=== PATIENT | female | born 1930 | race Caucasian/White ===

== ENCOUNTER 2018-09-09 15:56 | Emergency (ER) | payer BC ==
--- NOTE | 2018-09-09 16:03 | PDOC ---
Rapid Medical Evaluation Time Seen by Provider: 09/09/18 16:01 Medical Evaluation: 09/09/18 16:02 I have performed a brief in-person evaluation of this patient. The patient presents with a chief complaint of: sent by PMD for admission. Pertinent physical exam findings: BLE edema present I have ordered the following: labs, urine, EKG, CXR The patient will proceed to the ED for further evaluation. Discharge Disposition - Diagnosis Edema - Referrals - Patient Instructions - Post Discharge Activity
[2018-09-09 16:05] VITALS: BP 216/87; PULSE 75; TEMP 98.2; BMI 19.5
[2018-09-09 17:14] LABS: BASO % 0.7 % (0-2.0); HEMATOCRIT 29.7 % (32.4-45.2); HEMOGLOBIN 10.4 GM/dL (10.7-15.3); LYMPH % 25.9 % (8-40); MCH 30.1 pg (25.7-33.7); MCHC 34.9 g/dl (32.0-36.0); MEAN CELL VOLUME 86.2 fl (80-96); MEAN PLT VOLUME 9.2 fl (7.5-11.1); MONO % 6.1 % (3.8-10.2); NEUT % 66.3 % (42.8-82.8); PLATELET COUNT 302 K/MM3 (134-434); RBC 3.45 M/mm3 (3.60-5.2); RDW 14.2 % (11.6-15.6); WHITE BLOOD COUNT 7.1 K/mm3 (4.0-10.0)
[2018-09-09 17:39] LABS: ALBUMIN 2.8 g/dl (3.4-5.0); ALK PHOS 152 U/L (45-117); ANION GAP 10 MMOL/L (8-16); BILIRUBIN,TOTAL 0.2 mg/dL (0.2-1); BLOOD UREA NITROGEN 39 mg/dL (7-18); CALCIUM 7.9 mg/dL (8.5-10.1); CHLORIDE 112 mmol/L (98-107); CO2 19 mmol/L (21-32); CREATININE 2.2 mg/dL (0.55-1.3); GLUCOSE,RANDOM 104 mg/dL (74-106); N-TERMINAL BNP 8111.3 pg/ml (5-450); POTASSIUM 4.2 mmol/L (3.5-5.1); SGOT/AST 16 U/L (15-37); SGPT/ALT 19 U/L (13-61); SODIUM 142 mmol/L (136-145); TOT PROT 6.2 g/dl (6.4-8.2)
--- NOTE | 2018-09-10 15:27 | EKG ---
Test Reason : Blood Pressure : / mmHG Vent. Rate : 073 BPM Atrial Rate : 073 BPM P-R Int : 130 ms QRS Dur : 112 ms QT Int : 410 ms P-R-T Axes : 076 037 044 degrees QTc Int : 451 ms NORMAL SINUS RHYTHM WITH SINUS ARRHYTHMIA INCOMPLETE RIGHT BUNDLE BRANCH BLOCK ABNORMAL ECG WHEN COMPARED WITH ECG OF 27-JUL-2009 12:58, INCOMPLETE RIGHT BUNDLE BRANCH BLOCK IS NOW PRESENT Confirmed by RADHA GALEANO, WEST ([id number]) on 09/10/2018 3:27:08 PM Referred By: Confirmed By:WEST GARCIA MD
== END 2018-09-09 20:33 | disposition home or self-care (01) ==
LOC: JER 15:56
DX: M79.89 Other specified soft tissue disorders (principal)
CPT/HCPCS: 36415; 71046-TC-FY; 80053; 82550; 82553; 83880; 84484; 85025; 93005; 93010; 99282-25

== ENCOUNTER 2018-09-09 20:44 | Observation (INO) | payer BC ==
--- NOTE | 2018-09-09 20:48 | PDOC ---
History of Present Illness - General History Source: Patient, Family Exam Limitations: No Limitations - History of Present Illness Initial Comments: 09/09/18 21:03 A portion of this note was documented by scribe services under my direction. I have reviewed the details of the note, within reason, and agree with the documentation with the following case summary and management plan written by me. Patient treated in the ED. Nursing notes are reviewed and incorporated into the medical decision-making. Vital signs reviewed. Assessment and plan: This is an 88-year-old female brought in by her granddaughter for evaluation and admission. Patient's granddaughter said they were over at [facility] patient waited 4 hours and had not seen a doctor yet so she brought her over here. However patient had a rapid medical evaluation and labs EKG and chest x-ray were ordered and completed prior to patient leaving [facility]. Significant values in patient's workup showed a BNP of 8118. Renal insufficiency with a BUN of 39 and a creatinine of 2.2 Patient's CBC was normal with a normal white count and differential Patient did have a measurable troponin of 0.2 Patient was noted to also have elevated blood pressure of systolic blood pressure 203 Patient will be admitted to a telemetry bed under the hospitalist service <Cheyanne Michel I - Last Filed: 09/09/18 21:07> - General History Source: Patient, Family Exam Limitations: No Limitations - History of Present Illness Initial Comments: The patient is an 88 year old female, with a significant PMH of hypertension, renal insufficiency, CHF, who presents to the emergency department sent by Dr. Mace for admission for abnormal lab values in the office. The patient presents with her family who states the patient had labs and a chest X Ray performed at [facility], however, after not being seen for many hours decided to come to [place] ED. The patient reports some mild discomfort to her lower extremities secondary to swelling. She denies any other complaints. The patient denies chest pain, shortness of breath, headache and dizziness. Denies fever, chills, nausea, vomit, diarrhea and constipation. Denies dysuria, frequency, urgency and hematuria. PAST MEDICAL HISTORY: As per HPI PAST SURGICAL HISTORY: no significant history FAMILY HISTORY: no pertinent history SOCIAL HISTORY: Pt lives with family and is employed. MEDICATIONS: reviewed ALLERGIES: As per nursing notes ROS General: No fevers or chills, no weakness, no weight loss HEENT: No change in vision. No sore throat,. No ear pain CardioVascular: No chest pain or shortness of breath Respiratory:No cough, or wheezing. Gastrointestinal: no nausea, vomiting, diarrhea or constipation, No rectal bleeding Genitourinary: No dysuria, hematuria, or frequency Musculoskeletal: +Bilateral LE discomfort and swelling. Neurologic: No headache, vertigo, dizziness or loss of consciousness Psychiatric: nor depression Skin: No rashes or easy bruising Endocrine: no increased thirst or abnormal weight change Allergic: no skin or latex allergy All other systems reviewed and normal Exam: General: Well-nourished well-developed individual, no acute distress HEENT: Throat: Normal, tonsils normal, no erythema or exudate Neck: Supple, no meningeal signs, no lymphadenopathy Eyes::Pupils equal reactive and round, extraocular motion intact Chest: Nontender to palpation Cardiac: +2/6 holosystolic murmur. S1-S2 normal, regular rate and rhythm, no rubs or gallops Respiratory: +Crackles to bilateral bases about ? way up. Abdomen: Soft, nondistended, normal bowel sounds, nontender to palpation diffusely Extremities: +2+ pitting edema to approx. mid calf. Warm, dry, no cyanosis, clubbing, or edema Skin: No rashes Neuro: Alert and oriented x3, nonfocal exam, grossly intact, normal gait Psych: Normal mood and affect 09/09/18 22:12 <Yelena Melendez - Last Filed: 09/09/18 22:12> - General Chief Complaint: Blood Pressure Problem Stated Complaint: HTN Time Seen by Provider: 09/09/18 20:48 Past History - Past Medical History COPD: No HTN: Yes - Suicide/Smoking/Psychosocial Hx Smoking History: Never smoked <Cheyanne Michel I - Last Filed: 09/09/18 21:07> <Yelena Melendez - Last Filed: 09/09/18 22:12> - Past Medical History Allergies/Adverse Reactions: Allergies Allergy/AdvReac Type Severity Reaction Status Date / Time No Known Allergies Allergy Verified 09/09/18 16:04 Home Medications: Ambulatory Orders Atorvastatin Ca [Lipitor] 10 mg PO HS 09/09/18 Hydralazine HCl 25 mg PO BID 09/09/18 Metoprolol Tartrate 50 mg PO BID 09/09/18 *Physical Exam - Vital Signs Last Vital Signs Temp Pulse Resp BP Pulse Ox 98.2 F 77 20 189/83 H 97 09/09/18 20:45 09/09/18 21:07 09/09/18 21:07 09/09/18 21:34 09/09/18 21:07 <Yelena Melendez - Last Filed: 09/09/18 22:12> Moderate Sedation - Procedure Monitoring Vital Signs: Procedure Monitoring Vital Signs Temperature 98.2 F 09/09/18 20:45 Pulse Rate 77 09/09/18 21:07 Respiratory Rate 20 09/09/18 21:07 Blood Pressure 189/83 H 09/09/18 21:34 O2 Sat by Pulse Oximetry (%) 97 09/09/18 21:07 <Yelena Melendez - Last Filed: 09/09/18 22:12> *DC/Admit/Observation/Transfer - Discharge Dispostion Decision to Admit order: Yes <Cheyanne Michel I - Last Filed: 09/09/18 21:07> - Attestations Scribe Attestion: 09/09/18 22:12 Documentation prepared by NADEEM Murphy, acting as medical accounting clerk for Cheyanne Michel MD. <Yelena Melendez - Last Filed: 09/09/18 22:12> Diagnosis at time of Disposition: CHF (congestive heart failure) Qualifiers: Heart failure type: unspecified Heart failure chronicity: acute on chronic Qualified Code(s): I50.9 - Heart failure, unspecified
[2018-09-09] MEDS ORDERED: METOPROLOL TARTRATE 50 MG TABLET (FP) PO SCH (22:15)
--- NOTE | 2018-09-09 22:17 | HP ---
CHIEF COMPLAINT: Increased BP, leg swelling and fatigue PCP: Dr. Byrnes HISTORY OF PRESENT ILLNESS: 88 year old female with a PMH of HTN, HLD, CKD, and dementia presented to the ED today at the request of her PCP with elevated BP and increased leg swelling at her appointment today. She was seen at the [facility] tract, but had to wait approximately 4 hours so the family left and brought her to [place]. Grand daughters and [id number] present to provide history. Family reports patient has has had intermittently increased leg swelling over the past several months. They also notice patient has become increasingly fatigued with exertion. They reports she has lost approximately 15 lbs over the past several months due to decreased appetite. Her blood pressure medication has been adjusted in the past several months by her PCP as her BP has been running high. 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 She was diagnosed by a neurologist in February with Alzheimer's disease. She was started on Aricept for 2 weeks, but it had to be discontinued because of nausea vomiting. Patient denies fevers, chills, headache , syncope, seizures, SOB, chest pain, abdominal pain. Upon admission to the ED, BP was 216/87. Labs notable for BNP of 8111.3, troponin #1 WNL, EKG with ST elevations in II, AVL, T-wave in V1, V2, V3, CXR showed b/l pleural effusions with bibasilar atelectasis. Recent Travel: No PAST MEDICAL HISTORY: Alzheimer's dementia HTN HLD CKD PAST SURGICAL HISTORY: Kidney stones Partial thyroidectomy Social History: Born in [facility], , lives at home with her grandson and his . Smoking: Never Alcohol: No Drugs: No Family History: Cancer: 2 sisters young, unsure of what kind of cancer, son - lung cancer , daughter: stomach cancer Allergies No Known Allergies Allergy (Verified 09/09/18 16:04) HOME MEDICATIONS: Home Medications Medication Instructions Recorded Atorvastatin Ca [Lipitor] 10 mg PO HS 09/09/18 Hydralazine HCl 25 mg PO BID 09/09/18 Metoprolol Tartrate 50 mg PO BID 09/09/18 REVIEW OF SYSTEMS CONSTITUTIONAL: (+) loss of appetite, weight change about 15 lbs over the past few months Absent: fever, chills, diaphoresis, generalized weakness, malaise, HEENT: Absent: rhinorrhea, nasal congestion, throat pain, throat swelling, difficulty swallowing, mouth swelling, ear pain, eye pain, visual changes CARDIOVASCULAR: (+) peripheral edema Absent: chest pain, syncope, palpitations, irregular heart rate, lightheadedness RESPIRATORY: (+) dyspnea with exertion Absent: cough, shortness of breath, orthopnea, wheezing, stridor, hemoptysis GASTROINTESTINAL: Absent: abdominal pain, abdominal distension, nausea, vomiting, diarrhea, constipation, melena, hematochezia GENITOURINARY: Absent: dysuria, frequency, urgency, hesitancy, hematuria, flank pain, genital pain MUSCULOSKELETAL: Absent: myalgia, arthralgia, joint swelling, back pain, neck pain SKIN: Absent: rash, itching, pallor HEMATOLOGIC/IMMUNOLOGIC: Absent: easy bleeding, easy bruising, lymphadenopathy, frequent infections ENDOCRINE: Absent: unexplained weight gain, unexplained weight loss, heat intolerance, cold intolerance NEUROLOGIC: Absent: headache, focal weakness or paresthesias, dizziness, unsteady gait, seizure, mental status changes, bladder or bowel incontinence PSYCHIATRIC: Absent: anxiety, depression, suicidal or homicidal ideation, hallucinations. PHYSICAL EXAMINATION Vital Signs - 24 hr 09/09/18 09/09/18 09/09/18 20:45 21:07 21:34 Temperature 98.2 F Pulse Rate [ 77 Left] Respiratory 20 20 Rate Blood Pressure 203/87 H Blood Pressure 206/74 H 189/83 H [Right Arm] O2 Sat by Pulse 97 97 Oximetry (%) GENERAL: Elderly, lying down, awake, pleasant, alert and oriented to person and place, in no acute distress. HEAD: Normal with no signs of trauma. EYES: Pupils equal, round and reactive to light, extraocular movements intact, sclera anicteric, conjunctiva clear. No lid lag. EARS, NOSE, THROAT: Nares patent, oropharynx clear without exudates. Moist mucous membranes. NECK: Normal range of motion, supple without lymphadenopathy, JVD, or masses. LUNGS: Breath sounds equal, clear to auscultation bilaterally. No wheezes, and no crackles. No accessory muscle use. HEART: Regular rate and rhythm, normal S1 and S2 without murmur, rub or gallop. ABDOMEN: Soft, nontender, not distended, normoactive bowel sounds, no guarding, no rebound, no masses. No hepatomegaly or splenomegaly. MUSCULOSKELETAL: Normal range of motion at all joints. No bony deformities or tenderness. No CVA tenderness. UPPER EXTREMITIES: 4/5 rapid transit operator strength b/l, 2+ pulses, warm, well-perfused. No cyanosis. No clubbing. No peripheral edema. LOWER EXTREMITIES: 5/5 leg strength, hyperpigmentation, with flakey pink skin and +2 pitting edema to BLE, no calf tenderness NEUROLOGICAL: No facial droop, normal speech. Normal gait. PSYCHIATRIC: Cooperative. Good eye contact. Appropriate mood and affect. SKIN: Warm, dry, normal turgor, no rashes or lesions noted, normal capillary refill. EKG EKG with ST elevations in II, AVL, T-wave in V1, V2, V3 compared to prior study in 07/27/09, though study was of poor quality. ASSESSMENT/PLAN: 88 year old female with a PMH of HTN, HLD, CKD, and dementia presented to the ED today at the request of her PCP with elevated BP (216/87) and increased leg swelling. She was found to have a BNP of 8111.3, CXR with b/l pleural effusions. She was admitted for further cardiac work up. Elevated BNP/lower leg edema - BNP 8111.3 - Trop #1 0.02, trop #2 pending - Abnormal EKG - Elevate legs - Continuous cardiac monitoring - Echocardiogram ordered - Cardiology consult ordered HTN - Improving - Continue home medications: - Hydralazine 25 mg BID - Metoprolol 50 BID - Cardiology consult ordered HLD - Continue Lipitor 10 mg QHS CKD Stage IV - BUN/Cr: 39/2.2 (baseline) - Renal dosing for medications - Renal diet FEN - PO intake adequate - Replete as needed - Sodium restricted/Renal diet Prophylaxis - DVT: Heparin SQ DISP: Patient requires further cardiac work up. Visit type - Emergency Visit Emergency Visit: Yes ED Registration Date: 09/09/18 Care time: The patient presented to the Emergency Department on the above date and was hospitalized for further evaluation of their emergent condition. - New Patient This patient is new to me today: Yes Date on this admission: 09/10/18 - Critical Care Critical Care patient: No
[2018-09-09] MEDS: hydrALAZINE HCL 25 MG TABLET (FP) PO SCH (23:30)
[2018-09-10 00:03] VITALS: BMI 21.5
[2018-09-10 08:33] LABS: HEMATOCRIT 28.2 % (32.4-45.2); HEMOGLOBIN 9.2 GM/dl (10.7-15.3); MCH 28.6 pg (25.7-33.7); MCHC 32.7 g/dl (32.0-36.0); MEAN CELL VOLUME 87.6 fl (80-96); MEAN PLT VOLUME 9.3 fl (7.5-11.1); PLATELET COUNT 273 K/MM3 (134-434); RBC 3.22 M/mm3 (3.60-5.2); RDW 13.3 % (11.6-15.6); WHITE BLOOD COUNT 6.4 K/mm3 (4.0-10.8)
--- NOTE | 2018-09-10 08:37 | CON.CARD ---
Consult Consult Specialty:: Cardiology Referred by:: Hospitalist Medicine Reason for Consultation:: Newly diagnosed CHF, hypertensive urgency - History of Present Illness Chief Complaint: Dyspnea, LE edema History of Present Illness: 88 year old female with a PMH of HTN, HLD, CKD, and dementia of Alzheimer's type presented to the ED with elevated BP, progressive exertional fatigue and increased leg swelling. e. She was started on Aricept for 2 weeks, but it had to be discontinued because of nausea vomiting. Patient denies fevers, chills, headache, near or syncope, seizures, SOB, chest pain, abdominal pain, palpitations. Upon admission to the ED, BP was 216/87. Labs notable for BNP of 8111.3, troponin #1 WNL, ECG not available for review CXR showed b/l pleural effusions with bibasilar atelectasis. - History Source History Provided By: Medical Record Limitations to Obtaining History: Clinical Condition - Alcohol/Substance Use Hx Alcohol Use: No - Smoking History Smoking history: Never smoked Have you smoked in the past 12 months: No Home Medications - Allergies Allergies/Adverse Reactions: Allergies Allergy/AdvReac Type Severity Reaction Status Date / Time No Known Allergies Allergy Verified 09/09/18 16:04 - Home Medications Home Medications: Ambulatory Orders Atorvastatin Ca [Lipitor] 10 mg PO HS 09/09/18 Hydralazine HCl 25 mg PO BID 09/09/18 Metoprolol Tartrate 50 mg PO BID 09/09/18 Review of Systems - Review of Systems Constitutional: reports: Loss of Appetite, Weakness Cardiovascular: reports: Edema Vital Signs: Vital Signs Temperature 98.9 F 09/10/18 06:00 Pulse Rate 69 09/10/18 06:00 Respiratory Rate 18 09/10/18 06:00 Blood Pressure 149/53 L 09/10/18 06:00 O2 Sat by Pulse Oximetry (%) 94 L 09/10/18 06:00 Constitutional: Yes: No Distress, Calm Neck: Yes: Supple Respiratory: Yes: Regular, Diminished Gastrointestinal: Yes: Normal Bowel Sounds, Soft Cardiovascular: Yes: Regular Rate and Rhythm JVD: No Carotid Bruit: No Heart Sounds: Yes: S1, S2 Murmur: Yes: Systolic Murmur, Grade 1 Edema: Yes Edema: LLE: 1+, RLE: 1+ - Other Data Labs, Other Data: Troponin, BNP 09/09/18 09/09/18 23:30 23:30 Troponin I Cancelled 0.03 Troponin, BNP 09/09/18 09/09/18 23:30 23:30 Troponin I Cancelled 0.03 Not available for review Imaging - Results Chest X-ray: Report Reviewed (Bilateral effusions) Problem List - Problems (1) Hypertensive urgency Code(s): I16.0 - HYPERTENSIVE URGENCY (2) Hyperlipidemia Code(s): E78.5 - HYPERLIPIDEMIA, UNSPECIFIED Qualifiers: Hyperlipidemia type: pure hypercholesterolemia Qualified Code(s): E78.00 - Pure hypercholesterolemia, unspecified; E78.0 - Pure hypercholesterolemia (3) Dementia Code(s): F03.90 - UNSPECIFIED DEMENTIA WITHOUT BEHAVIORAL DISTURBANCE Qualifiers: Dementia type: Alzheimer's disease (4) Chronic kidney disease Code(s): N18.9 - CHRONIC KIDNEY DISEASE, UNSPECIFIED Qualifiers: Chronic kidney disease stage: stage 3 (moderate) Qualified Code(s): N18.3 - Chronic kidney disease, stage 3 (moderate) (5) CHF (congestive heart failure) Code(s): I50.9 - HEART FAILURE, UNSPECIFIED Qualifiers: Heart failure type: diastolic Heart failure chronicity: acute on chronic Qualified Code(s): I50.33 - Acute on chronic diastolic (congestive) heart failure Assessment/Plan 1. Acute on chronic diastolic heart failure 2. Hypertensive cardiomyopathy with urgency 3. Hyperlipidemia 4. CKD 5. Dementia of Alzheimer's Type 6. Anemia P:1. IV diuresis with monitor diuretic response, renal fxn and electrolytes, replete Mg 2. Change Lopressor to carvedilol 6.25 bid with uptitration as tolerated, continue Lipitor 10 qhs, ASA 81 qd 3. Start CHRIS-I/ARB once renal fxn stabilizes, continue hydralazine 25 bid for now 4. F/u echocardiogram results, obtain ECG for review 5. Thank you for consultative opportunity
[2018-09-10 08:43] LABS: ANION GAP 9 MMOL/L (8-16); BLOOD UREA NITROGEN 36 mg/dl (7-18); CALCIUM 7.9 mg/dl (8.4-10.2); CHLORIDE 112 mmol/L (98-107); CO2 18 mmol/L (22-28); GLUCOSE,RANDOM 103 mg/dl (74-106); MAGNESIUM 1.6 mg/dL (1.8-2.4); POTASSIUM 4.5 mmol/L (3.5-5.1); SODIUM 139 mmol/L (136-145)
[2018-09-10] MEDS ORDERED: FUROSEMIDE 40 MG/4 ML INJECTABLE VIAL IVPUSH SCH (09:00)
[2018-09-10] MEDS ORDERED: MAGNESIUM SULF 50% (8.12 MEQ/2 ML-1 GM VIAL) IVPB ONE (09:04)
[2018-09-10] MEDS ORDERED: MAGNESIUM OXIDE 400 MG TABLET (FP) PO ONE (09:15)
[2018-09-10] MEDS: CARVEDILOL 6.25 MG TABLET (FP) PO SCH ×2 (10:03→21:51)
[2018-09-10] MEDS: hydrALAZINE HCL 25 MG TABLET (FP) PO SCH ×2 (10:03→21:51)
[2018-09-10] MEDS: ASPIRIN 81 MG CHEWABLE TABLETS PO SCH (10:03)
[2018-09-10] MEDS: HEPARIN NA (PORCINE) 5,000 UNITS/ML 1ML VIAL SQ SCH ×2 (10:03→21:51)
--- NOTE | 2018-09-10 11:12 | PN ---
Physical Exam: SUBJECTIVE: Patient seen and examined on morning rounds. No complaints. OBJECTIVE: Vital Signs Period Temp Pulse Resp BP Sys/Ya Pulse Ox Last 24 Hr 98.2 F-98.9 F 67-77 17-20 134-206/50-87 93-97 GENERAL: The patient is awake, alert, oriented x 2. HEAD: Normal with no signs of trauma. EYES: PERRL, extraocular movements intact, sclera anicteric, conjunctiva clear. No ptosis. ENT: Ears normal, nares patent, oropharynx clear without exudates, moist mucous membranes. NECK: Trachea midline, full range of motion, supple. LUNGS: Scattered rales. No tachypnea or accessory muscle use. HEART: Regular rate and rhythm, S1, S2 without murmur, rub or gallop. ABDOMEN: Soft, nontender, nondistended, normoactive bowel sounds, no guarding, no rebound, no hepatosplenomegaly, no masses. EXTREMITIES: 2+ pulses, warm, well-perfused, 2+ pitting LE edema and chronic venous stasis changes with cobblestoning. No erythema or drainage. NEUROLOGICAL: Cranial nerves II through XII grossly intact. Normal speech, gait not observed. PSYCH: Normal mood, normal affect. SKIN: Warm, dry, normal turgor, no rashes or lesions noted Laboratory Results - last 24 hr 09/09/18 09/09/18 09/10/18 23:30 23:30 08:17 WBC 6.4 RBC 3.22 L Hgb 9.2 L Hct 28.2 L MCV 87.6 MCH 28.6 MCHC 32.7 RDW 13.3 Plt Count 273 MPV 9.3 Sodium Potassium Chloride Carbon Dioxide Anion Gap BUN Creatinine Creat Clearance w eGFR Random Glucose Calcium Magnesium Troponin I Cancelled 0.03 09/10/18 08:17 WBC RBC Hgb Hct MCV MCH MCHC RDW Plt Count MPV Sodium 139 Potassium 4.5 Chloride 112 H Carbon Dioxide 18 L Anion Gap 9 BUN 36 H Creatinine 2.0 H Creat Clearance w eGFR 23.57 Random Glucose 103 Calcium 7.9 L Magnesium 1.6 L Troponin I Active Medications Generic Name Dose Route Start Last Admin Trade Name Freq PRN Reason Stop Dose Admin Aspirin 81 mg 09/10/18 10:00 09/10/18 10:03 Asa - PO 81 mg DAILY PENELOPE Administration Atorvastatin Calcium 10 mg 09/10/18 22:00 Lipitor - PO HS PENELOPE Carvedilol 6.25 mg 09/10/18 10:00 09/10/18 10:03 Coreg - PO 6.25 mg BID PENELOPE Administration Furosemide 40 mg 09/10/18 09:00 09/10/18 10:03 Lasix Injection - IVPUSH 40 mg BID@0600,1400 PENELPOE Administration Heparin Sodium (Porcine) 5,000 unit 09/10/18 10:00 09/10/18 10:03 Heparin - SQ 5,000 unit BID PENELOPE Administration Hydralazine HCl 25 mg 09/09/18 22:15 09/10/18 10:03 Apresoline - PO 25 mg BID PENELOPE Administration ASSESSMENT/PLAN: 88 year old female with a PMH of HTN, HLD, CKD, and dementia presenting with hypertensive emergency and [id number] systolic CHF. 1. Hypertensive emergency / CHF exacerbation -BP now at goal -Continue hydralazine 25mg po bid -Continue Coreg 6.25mg po bid -Add ACEI when renal function stabilized -Trop neg x 2 -Echo pending -Trial of Lasix 20mg IVP bid -Strict I/O, daily weights -Cardiology following 2. CAD -Continue Lipitor, ASA 3. Dementia -Frequent re-orientation, fall precautions -Did not tolerate Aricept 4. F/E/N -PO intake adequate -Low sodium diet 5. Ppx -Sqh -PT DISPO: Requires observation for diuresis in setting of renal insufficiency
[2018-09-10] MEDS: FUROSEMIDE 40 MG/4 ML INJECTABLE VIAL IVPUSH SCH ×2 (12:18→14:10)
--- NOTE | 2018-09-10 14:42 | ECHO ---
Name: OLIVER PADRON Exam:Adult Echocardiogram Study Date: 09/10/2018 12:47 PM Age: 88 yrs Reason For Study: HTN Height: 59 in Weight: 99 lb BSA: 1.4 m2 MMode/2D Measurements & Calculations IVSd: 1.2 cm Ao root diam: 2.4 cm LVIDd: 3.2 cm LA dimension: 3.5 cm LVIDs: 2.4 cm LVPWd: 1.1 cm EDV(Teich): 42.1 ml ESV(Teich): 20.1 ml Doppler Measurements & Calculations MV E max joey: 114.0 cm/sec MV A max joey: 51.6 cm/sec MV dec slope: 943.1 cm/sec2 MV E/A: 2.2 MR max joey: 400.9 cm/sec TR max joey: 385.6 cm/sec MR max P.6 mmHg TR max P.4 mmHg PI end-d joey: 117.2 cm/sec Procedure A complete two-dimensional transthoracic echocardiogram was performed (2D, M-mode, Doppler and color flow Doppler). Left Ventricle The left ventricular size, thickness and function are normal. The left ventricular ejection fraction is normal. Ejection Fraction = 60-65%. The left ventricular wall motion is normal. Right Ventricle The right ventricle is normal in size and function. Atria The left atrium is moderately dilated. The right atrium is moderately dilated. Mitral Valve There is mild mitral regurgitation. Tricuspid Valve There is moderate tricuspid regurgitation. There is severe pulmonary hypertension. Aortic Valve The aortic valve is trileaflet. No hemodynamically significant valvular aortic stenosis. Mild aortic regurgitation. Pulmonic Valve Trace pulmonic valvular regurgitation. Great Vessels The aortic root is normal size. Pericardium/Pleura There is no pericardial effusion. Interpretation Summary The left ventricular size, thickness and function are normal The right ventricle is normal in size and function. The left atrium is moderately dilated. The right atrium is moderately dilated. There is mild mitral regurgitation. There is moderate tricuspid regurgitation. There is severe pulmonary hypertension. Mild aortic regurgitation. Trace pulmonic valvular regurgitation. MD Irving Tillman 09/10/2018 02:41 PM
--- NOTE | 2018-09-10 15:28 | EKG ---
Test Reason : Blood Pressure : / mmHG Vent. Rate : 070 BPM Atrial Rate : 070 BPM P-R Int : 126 ms QRS Dur : 114 ms QT Int : 464 ms P-R-T Axes : 072 025 025 degrees QTc Int : 501 ms SINUS RHYTHM WITH PREMATURE SUPRAVENTRICULAR COMPLEXES INCOMPLETE RIGHT BUNDLE BRANCH BLOCK NONSPECIFIC ST ABNORMALITY PROLONGED QT ABNORMAL ECG WHEN COMPARED WITH ECG OF 09-SEP-2018 16:12, PREMATURE SUPRAVENTRICULAR COMPLEXES ARE NOW PRESENT T WAVE INVERSION NO LONGER EVIDENT IN ANTERIOR LEADS QT HAS LENGTHENED Confirmed by WEST GARCIA MD ([id number]) on 09/10/2018 3:28:02 PM Referred By: MD MCCABE Confirmed By:WEST GARCIA MD
[2018-09-10] MEDS ORDERED: ATORVASTATIN CA 10 MG TABLET (FP) PO SCH (22:00)
[2018-09-11] MEDS: FUROSEMIDE 40 MG/4 ML INJECTABLE VIAL IVPUSH SCH (06:56)
[2018-09-11 08:46] LABS: ANION GAP 8 MMOL/L (8-16); BLOOD UREA NITROGEN 40 mg/dl (7-18); CALCIUM 7.8 mg/dl (8.4-10.2); CHLORIDE 110 mmol/L (98-107); CHOLESTEROL 175 mg/dl; CO2 20 mmol/L (22-28); CREATININE 2.2 mg/dl (0.6-1.3); GLUCOSE,RANDOM 118 mg/dl (74-106); HDL CHOLESTEROL 55 mg/dl (29-89); MAGNESIUM 1.6 mg/dL (1.8-2.4); POTASSIUM 4.2 mmol/L (3.5-5.1); SODIUM 138 mmol/L (136-145); TRIGLYCERIDES 88 mg/dl (35-160)
[2018-09-11] MEDS: CARVEDILOL 6.25 MG TABLET (FP) PO SCH (09:59)
[2018-09-11] MEDS: hydrALAZINE HCL 25 MG TABLET (FP) PO SCH (09:59)
[2018-09-11] MEDS: HEPARIN NA (PORCINE) 5,000 UNITS/ML 1ML VIAL SQ SCH (09:59)
[2018-09-11] MEDS: ASPIRIN 81 MG CHEWABLE TABLETS PO SCH (09:59)
[2018-09-11] MEDS ORDERED: MAGNESIUM SULF 50% (8.12 MEQ/2 ML-1 GM VIAL) IVPB ONE (11:19)
[2018-09-11] MEDS ORDERED: MAGNESIUM SULFATE IN WATER 2 GM/50 ML IVPB IVPB ONE (12:00)
--- NOTE | 2018-09-11 13:09 | PN ---
Physical Exam: SUBJECTIVE: Patient seen and examined oob to chair. OBJECTIVE: Vital Signs Period Temp Pulse Resp BP Sys/Ya Pulse Ox Last 24 Hr 97.9 F-98.8 F 69-78 17-20 140-188/42-66 92-95 GENERAL: The patient is awake, alert, conversational, confused. LUNGS: mild bibasilar crackles HEART: Regular rate and rhythm, S1, S2 ABDOMEN: Soft, nontender, nondistended LOWER EXTREMITIES: Extensive venous stasis changes bilaterally with cobblestoned skin, no sign of infection; warm, well-perfused, no edema, no calf tenderness NEUROLOGICAL: Cranial nerves II through XII grossly intact. Normal speech, gait not observed. Laboratory Results - last 24 hr 09/11/18 09/11/18 07:30 07:30 Sodium 138 Potassium 4.2 Chloride 110 H Carbon Dioxide 20 L Anion Gap 8 BUN 40 H Creatinine 2.2 H Creat Clearance w eGFR 21.11 Random Glucose 118 H Hemoglobin A1c % 6.1 Calcium 7.8 L Magnesium 1.6 L Triglycerides 88 Cholesterol 175 Total LDL Cholesterol 102 H HDL Cholesterol 55 TSH 1.96 Active Medications Generic Name Dose Route Start Last Admin Trade Name Freq PRN Reason Stop Dose Admin Aspirin 81 mg 09/10/18 10:00 09/11/18 09:59 Asa - PO 81 mg DAILY [facility] Administration Atorvastatin Calcium 10 mg 09/10/18 22:00 09/10/18 21:51 Lipitor - PO 10 mg HS [facility] Administration Carvedilol 6.25 mg 09/10/18 10:00 09/11/18 09:59 Coreg - PO 6.25 mg BID [facility] Administration Furosemide 40 mg 09/12/18 10:00 Lasix - PO DAILY [facility] Heparin Sodium (Porcine) 5,000 unit 09/10/18 10:00 09/11/18 09:59 Heparin - SQ 5,000 unit BID [facility] Administration Hydralazine HCl 25 mg 09/09/18 22:15 09/11/18 09:59 Apresoline - PO 25 mg BID [facility] Administration Magnesium Sulfate 2 gm in 50 mls @ 50 mls/hr 09/11/18 12:00 09/11/18 12:04 Magnesium Sulf 2 G/50 Ml Bag IVPB 09/11/18 12:59 50 mls/hr ONCE ONE Administration ASSESSMENT/PLAN: 88 year-old female with a PMH significant for HTN, HLD, diastolic HF, CKD, and Alzheimer's dementia, admitted for hypertensive urgency, and HF exacerbation. Hypertensive urgency --BP 203/87 on admission --better controlled, continue carvedilol, hydralazine Acute on chronic heart failure --09/10 Echo: LV normal, EF 60-65%; RV normal; BLAE; mild MR; moderate TR; severe pulmonary HTN; trace PI --09/09 CXR: bilateral pleural effusions --clinical exam improved, minimal bibasilar crackles --continue lasix PO 40mg daily, monitor renal function --pre-post --repeat CXR in am Chronic renal insufficiency --Cr 2.2 ~ baseline Alzheimer's dementia --not on medication, did not tolerate Aricept FEN Fluids: PO intake adequate Electrolytes: replete as indicated Nutrition: low sodium DVT prophylaxis: subq heparin Pre post Physical therapy Dispo: continues to require inpatient care. Full code. Visit type - Emergency Visit Emergency Visit: Yes ED Registration Date: 09/09/18 Care time: The patient presented to the Emergency Department on the above date and was hospitalized for further evaluation of their emergent condition. - New Patient This patient is new to me today: Yes Date on this admission: 09/11/18 - Critical Care Critical Care patient: No
[2018-09-11] MEDS ORDERED: AMMONIUM LACTATE 12% LOTION 225 GM BOTTLE TP SCH (13:15)
--- NOTE | 2018-09-11 14:19 | PN ---
Progress Note (short form) - Note Progress Note: cc: dyspnea, edema s: feels tired but better than yesterday. denies dyspnea, orthopnea, chest pain. still has edema but has improved Current Medications Aspirin (Asa -) 81 mg PO DAILY [facility] Last Admin: 09/11/18 09:59 Dose: 81 mg Atorvastatin Calcium (Lipitor -) 10 mg PO HS [facility] Last Admin: 09/10/18 21:51 Dose: 10 mg Carvedilol (Coreg -) 6.25 mg PO BID [facility] Last Admin: 09/11/18 09:59 Dose: 6.25 mg Furosemide (Lasix -) 40 mg PO DAILY [facility] Heparin Sodium (Porcine) (Heparin -) 5,000 unit SQ BID [facility] Last Admin: 09/11/18 09:59 Dose: 5,000 unit Hydralazine HCl (Apresoline -) 25 mg PO BID [facility] Last Admin: 09/11/18 09:59 Dose: 25 mg Lactic Acid (Lac-Hydrin 12) 1 applic TP BID [facility] Vital Signs: Vital Signs Period Temp Pulse Resp BP Sys/Ya Pulse Ox Last 24 Hr 97.9 F-98.8 F 64-78 16-20 140-188/45-66 92-97 Constitutional: Yes: No Distress, Calm Neck: Yes: Supple Respiratory: Yes: Regular, Diminished at bases L>R Gastrointestinal: Yes: Normal Bowel Sounds, Soft Cardiovascular: Yes: Regular Rate and Rhythm JVD: No Carotid Bruit: No Heart Sounds: Yes: S1, S2, RRR, no murmur Murmur: Yes: Systolic Murmur, Grade 1 Edema: Yes Edema: LLE: trace, RLE: trace EKG: sinus, RBBB, PACs, prolonged QTc 501 CXR: bilateral effusions tele: sinus, PACs, PVCs echo 08/2018 nl LV/RV function, LA/RA mod dilated, mild MR, mod TR, severe pulm HTN, mild AR Hypertensive urgency, acute diastolic HF exacerbation - received IV lasix 20 mg x 2 - weight down 2 lbs, exam improving. IV lasix stopped and pt transitioned to PO - nl EF on echo - lopressor changed to carvedilol, continue - SBP remains elevated, however low diastolic and improved from admission - continue carvedilol and hydralazine and observe, uptitrate as tolerated - defer ACEI given CKD - continue PO lasix 40 mg daily, monitor Cr, daily weights HLD - continue lipitor Dementia - manage per primary CKD - Cr 2.2, at baseline
--- NOTE | 2018-09-11 15:47 | DS ---
Physical Exam: SUBJECTIVE: Patient seen and examined OBJECTIVE: Vital Signs Period Temp Pulse Resp BP Sys/Ya Pulse Ox Last 24 Hr 97.9 F-98.8 F 64-78 16-20 140-188/45-66 92-97 PHYSICAL EXAM GENERAL: The patient is awake, alert, and fully oriented, in no acute distress. HEAD: Normal with no signs of trauma. EYES: PERRL, extraocular movements intact, sclera anicteric, conjunctiva clear. ENT: Ears normal, nares patent, oropharynx clear without exudates, moist mucous membranes. NECK: Trachea midline, full range of motion, supple. LUNGS: Breath sounds equal, clear to auscultation bilaterally, no wheezes, no crackles, no accessory muscle use. HEART: Regular rate and rhythm, S1, S2 without murmur, rub or gallop. ABDOMEN: Soft, nontender, nondistended, normoactive bowel sounds, no guarding, no rebound, no hepatosplenomegaly, no masses. EXTREMITIES: 2+ pulses, warm, well-perfused, no edema. NEUROLOGICAL: Cranial nerves II through XII grossly intact. Normal speech, gait not observed. PSYCH: Normal mood, normal affect. SKIN: Warm, dry, normal turgor, no rashes or lesions noted. LABS Laboratory Results - last 24 hr 09/11/18 09/11/18 07:30 07:30 Sodium 138 Potassium 4.2 Chloride 110 H Carbon Dioxide 20 L Anion Gap 8 BUN 40 H Creatinine 2.2 H Creat Clearance w eGFR 21.11 Random Glucose 118 H Hemoglobin A1c % 6.1 Calcium 7.8 L Magnesium 1.6 L Triglycerides 88 Cholesterol 175 Total LDL Cholesterol 102 H HDL Cholesterol 55 TSH 1.96 HOSPITAL COURSE: Date of Admission:09/09/18 Date of Discharge: 09/11/18 Pre hospital course 88 year old female with a PMH of HTN, HLD, CKD, and dementia presented to the ED today at the request of her PCP with elevated BP and increased leg swelling at her appointment today. She was seen at the [facility] fast tract, but had to wait approximately 4 hours so the family left and brought her to [place]. Grand daughters and [id number] present to provide history. Family reports patient has has had intermittently increased leg swelling over the past several months. They also notice patient has become increasingly fatigued with exertion. They reports she has lost approximately 15 lbs over the past several months due to decreased appetite. Her blood pressure medication has been adjusted in the past several months by her PCP as her BP has been running high. 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 She was diagnosed by a neurologist in February with Alzheimer's disease. She was started on Aricept for 2 weeks, but it had to be discontinued because of nausea vomiting. Patient denies fevers, chills, headache , syncope, seizures, SOB, chest pain, abdominal pain. ER course Upon admission to the ED, BP was 216/87. Labs notable for BNP of 8111.3, troponin #1 WNL, EKG with ST elevations in II, AVL, T-wave in V1, V2, V3, CXR showed b/l pleural effusions with bibasilar atelectasis. Subsequent hospital course by hospital course Hypertensive urgency --BP 203/87 on admission, npow in 150s/40-50s --continue carvedilol, hydralazine Acute on chronic diastolic heart failure --09/10 Echo: LV normal, EF 60-65%; RV normal; BLAE; mild MR; moderate TR; severe pulmonary HTN; trace PI --09/09 CXR: bilateral pleural effusions --clinical exam improved, minimal bibasilar crackles --continue lasix PO 40mg daily Chronic renal insufficiency --Cr 2.2 ~ baseline Alzheimer's dementia --not on medication, did not tolerate Aricept Minutes to complete discharge: 35 Discharge Summary Reason For Visit: CONGESTIVE HEART FAILURE Current Active Problems CHF (congestive heart failure) (Acute) Chronic kidney disease (Acute) Dementia (Acute) Hyperlipidemia (Acute) Hypertensive urgency (Acute) - Instructions - Home Medications Comprehensive Discharge Medication List: Ambulatory Orders Atorvastatin Ca [Lipitor] 10 mg PO HS 09/09/18 Hydralazine HCl 25 mg PO BID 09/09/18 Metoprolol Tartrate 50 mg PO BID 09/09/18 This patient is new to me today: Yes Date on this admission: 09/11/18 Emergency Visit: Yes ED Registration Date: 09/09/18 Care time: The patient presented to the Emergency Department on the above date and was hospitalized for further evaluation of their emergent condition. Critical Care patient: No - Discharge Referral Referred to [facility] Med P.C.: No
[2018-09-11 16:33] VITALS: BP 151/68; PULSE 72; TEMP 98.3
[2018-09-12] MEDS ORDERED: FUROSEMIDE 40 MG TABLET (FP) PO SCH (10:00)
== END 2018-09-11 16:46 | disposition home or self-care (01) ==
LOC: FER 20:44 → FM/S 22:28 → INTOOBSV 22:28 → UNDOADMOB 22:28 → FM/S 22:41
PROVIDERS: ADMIT Internal Medicine; ATTEND Nurse Practitioner Acute Care
PROC: 3E033GC Introduction of Other Therapeutic Substance into Peripheral Vein, Percutaneous Approach (ICD-10-PCS; principal; 2018-09-09)
PROC: 3E033GC Introduction of Other Therapeutic Substance into Peripheral Vein, Percutaneous Approach (ICD-10-PCS; 2018-09-09)
PROC: 3E013GC Introduction of Other Therapeutic Substance into Subcutaneous Tissue, Percutaneous Approach (ICD-10-PCS; 2018-09-09)
DX: I16.0 Hypertensive urgency (principal); I50.33 Acute on chronic diastolic (congestive) heart failure; N18.3 Chronic kidney disease, stage 3 (moderate); E78.5 Hyperlipidemia, unspecified; G30.9 Alzheimer's disease, unspecified; F02.80 Dementia in other diseases classified elsewhere, unspecified severity, without behavioral disturbance, psychotic disturbance, mood disturbance, and anxiety; J90 Pleural effusion, not elsewhere classified
CPT/HCPCS: 29131; 36415; 80048; 80061; 83036; 83721; 83735; 84443; 84484; 85027; 93005; 93306-TC; 96365; 96372; 96375; 97116-GP; 97161-GP; 99283-25; G0378; J1644

== ENCOUNTER 2018-10-14 15:42 | Observation (INO) | payer BC ==
[2018-10-14] MEDS ORDERED: ACETAMINOPHEN 325 MG TABLET (FP) PO ONE (15:56)
[2018-10-14] MEDS ORDERED: ACETAMINOPHEN 325 MG TABLET (FP) ONE (15:57)
--- NOTE | 2018-10-14 16:58 | PDOC ---
History of Present Illness - General Chief Complaint: Injury Stated Complaint: FALL,RT INNER LEG PAIN Time Seen by Provider: 10/14/18 15:58 History Source: Patient Exam Limitations: No Limitations - History of Present Illness Initial Comments: 10/14/18 16:53 88-year-old female status post trip and fall. Patient was walking with her granddaughter at the store when she tripped over a speed bump patient states her fall was broken by her granddaughter who was able to stop her from hitting the ground too hard. She did however landed her right hip is complaining of right hip pain denies head injury no neck or back injury no ankle or knee pain pain is worse with walking she is ambulating but with assistance did not take anything for pain prior to arrival no previous surgeries on that right hip Past History - Past Medical History Allergies/Adverse Reactions: Allergies Allergy/AdvReac Type Severity Reaction Status Date / Time No Known Allergies Allergy Verified 10/14/18 16:00 Home Medications: Ambulatory Orders Atorvastatin Ca [Lipitor] 10 mg PO HS 09/09/18 Hydralazine HCl 25 mg PO BID 09/09/18 Carvedilol [Coreg -] 6.25 mg PO BID #60 tablet 09/11/18 Furosemide [Lasix -] 40 mg PO DAILY #30 tablet 09/11/18 Cardiac Disorders: Yes (CAD, CHF) COPD: No Dementia: Yes Disorders: Yes HTN: Yes - Suicide/Smoking/Psychosocial Hx Smoking History: Never smoked Have you smoked in the past 12 months: No Information on smoking cessation initiated: No Hx Alcohol Use: No Drug/Substance Use Hx: No Substance Use Type: None Hx Substance Use Treatment: No Review of Systems - Review of Systems Constitutional: No: Diaphoresis, Fever HEENTM: No: Blurred Vision Respiratory: No: Orthopnea, Productive cough Cardiac (ROS): No: Edema : No: Burning, Dysuria Musculoskeletal: Yes: Joint Pain. No: Back Pain All Other Systems: Reviewed and Negative *Physical Exam - Vital Signs Last Vital Signs Temp Pulse Resp BP Pulse Ox 97.8 F 77 20 177/70 H 100 10/14/18 15:43 10/14/18 15:43 10/14/18 15:43 10/14/18 15:43 10/14/18 15:43 - Physical Exam Comments: 10/14/18 16:55 Awake alert no acute distress head is atraumatic no cervical spine tenderness. Lungs are clear bilaterally heart is regular without any murmurs rubs or gallops abdomen is soft nontender pelvis is noted for mild right lower groin tenderness there is no lateral hip tenderness to palpation patient has full range of motion of the right hip knee is nontender full range of motion ankle is nontender with full range of motion she has 2+ DP pulses bilaterally sensation is intact no midline spinal tenderness GCS is 15 General Appearance: No: Apparent Distress HEENT: negative: Normal ENT Inspection Neck: negative: Normal Thyroid, Rigid, Supple Respiratory/Chest: negative: Normal Breath Sounds Moderate Sedation - Procedure Monitoring Vital Signs: Procedure Monitoring Vital Signs Temperature 97.8 F 10/14/18 15:43 Pulse Rate 77 10/14/18 15:43 Respiratory Rate 20 10/14/18 15:43 Blood Pressure 177/70 H 10/14/18 15:43 O2 Sat by Pulse Oximetry (%) 100 10/14/18 15:43 ED Treatment Course - RADIOLOGY Radiology Studies Ordered: Category Date Time Status HIP & PELVIS-RIGHT [RAD] Stat Radiology 10/14/18 15:58 Taken - Medications Given in the ED: ED Medications Discontinued Medications Generic Name Dose Route Start Last Admin Trade Name Freq PRN Reason Stop Dose Admin Acetaminophen 650 mg 10/14/18 15:56 10/14/18 16:00 Tylenol - PO 10/14/18 15:57 650 mg ONCE ONE Administration Medical Decision Making - Medical Decision Making 10/14/18 16:55 Differential diagnosis includes hip fracture versus contusion versus pubic rami fracture. X-rays will be obtained. Patient was given Tylenol for pain X-rays of the pelvis and right hip suspicious for acute fracture pubic rami, recommond ct when discussed wtih dr lee, was given Tylenol for her pain 10/14/18 19:17 pt with questionable pubic rami deformity on xray. ct pelvis ordered confirmed superior and inferior pubic rami fx. dr lcay lee ortho will evaluate in ED.dr crow lee to inform of the findings and discuss plan of care. *DC/Admit/Observation/Transfer Diagnosis at time of Disposition: Contusion, hip, Pubic ramus fracture - Discharge Dispostion Disposition: HOME Condition at time of disposition: Improved - Referrals Referrals: Bobby Daly DO [Staff Physician] - - Patient Instructions Printed Discharge Instructions: Help for Hip Pain, Pelvic Fracture, Contusion Additional Instructions: you should take tylenol 500 mg every 6 hrs as needed for your pain. you should follow up wtih your primary care doctor. call to schedule you should also follow up with an orthopedist call to schedule see referral information for dr. daly . your pubic rami is fractured on right side in your pelvis. - Post Discharge Activity
--- NOTE | 2018-10-14 19:49 | PDOC ---
*Physical Exam - Vital Signs Last Vital Signs Temp Pulse Resp BP Pulse Ox 97.8 F 69 20 172/71 H 97 10/14/18 15:43 10/14/18 17:14 10/14/18 17:14 10/14/18 17:14 10/14/18 17:14 ED Treatment Course - Medications Given in the ED: ED Medications Discontinued Medications Generic Name Dose Route Start Last Admin Trade Name Nirav PRN Reason Stop Dose Admin Acetaminophen 650 mg 10/14/18 15:56 10/14/18 16:00 Tylenol - PO 10/14/18 15:57 650 mg ONCE ONE Administration Medical Decision Making - Medical Decision Making 10/14/18 19:48\ pt signed out from Dr Sterling at 7pm pending ortho cs, reeval of note 88 YOF with h/o HTN, HLD (meds: carvedilol BID, hydralazine BID, lasix once daily and simvastatin QHS), s/p mechanical fall today with right hip pain, difficulty ambulating, CT pelvis +right inf/superior pubic ramus fx. given tylenol here, with analgesic effect. ortho cs, recs: PT eval, rest and analgesia. seen by Dr Perea, will continue to follow. PCP called and made aware, Dr Neri. admit to hospitalist for pubic ramus fx, pain control, management and PT eval. s /o to Dr Pat. 10/14/18 20:02 10/14/18 20:30 *DC/Admit/Observation/Transfer Diagnosis at time of Disposition: Contusion, hip, Pubic ramus fracture - Discharge Dispostion Condition at time of disposition: Improved Decision to Admit order: Yes - Referrals Referrals: Bobby Daly DO [Staff Physician] - - Patient Instructions Printed Discharge Instructions: Help for Hip Pain, Pelvic Fracture, Contusion Additional Instructions: you should take tylenol 500 mg every 6 hrs as needed for your pain. you should follow up wtih your primary care doctor. call to schedule you should also follow up with an orthopedist call to schedule see referral information for dr. daly . your pubic rami is fractured on right side in your pelvis. - Post Discharge Activity
--- NOTE | 2018-10-14 19:52 | CONSULT ---
Consult - text type - Consultation Consultation Note: ORTHOPEDIC SURGERY CONSULTATION NOTE Department of Orthopedic Surgery HISTORY OF PRESENT ILLNESS Mela Salmon is an 88 year old female with a PMH of HTN and hypercholesterolemia who presents to [facility] ED with right groin pain. The orthopedic service was consulted for right superior and inferior pubic rami fractures. The injury occurred today after a mechanical fall. The patient notes sharp pain in her groin which improves with rest. Denies any other injuries. Denies numbness, tingling or other constitutional complaints. Denies tobacco use , drug use, alcohol abuse. The patient lives with family and uses no assistive devices at baseline. Active Problems Problem Status Category Onset Contusion, hip Acute Medical Pubic ramus fracture Acute Medical Social History Smoking history Never smoked Hx Alcohol Use No Allergies Allergy/AdvReac Type Severity Reaction Status Date / Time No Known Allergies Allergy Verified 10/14/18 16:00 Vital Signs (last) Temp Pulse Resp BP Pulse Ox 97.8 F 69 20 172/71 H 97 10/14/18 15:43 10/14/18 17:14 10/14/18 17:14 10/14/18 17:14 10/14/18 17:14 Intake and Output 10/12/18 10/13/18 10/14/18 23:59 23:59 23:59 Other: Weight 90 lb Height 4 ft 8 in Body Mass Index (BMI) 20.1 FAMILY HISTORY Unknown REVIEW OF SYMPTOMS A twelve-point review of systems was performed and was negative except as noted in HPI. PHYSICAL EXAM Constitutional: Alert and oriented to person, place, and time. Appears well- developed and well-nourished. No acute distress, appropriate mood and affect. HEENT: Normocephalic, atraumatic Cardiovascular: Regular rate and rhythm, extremities warm, no cyanosis. Pulmonary: Breathing comfortably, normal air movement, no audible wheezing. Spine: No midline or paraspinal tenderness in the cervical, thoracic or lumbar spine. No step-offs. Right Upper Extremity: Skin tear dorsum of right hand. No tenderness to palpation. Full passive and active ROM, free from pain. M/R/U/MSK/AX motor intact; SILT distally; 2+ radial pulses; Cap refill brisk. Left Upper Extremity: No tenderness to palpation. Full passive and active ROM, free from pain. M/R/U/MSK/AX motor intact; SILT distally; 2+ radial pulses; Cap refill brisk. Right Lower Extremity: Venous stasis of the leg. Muscle mass equal and symmetric to contralateral side. No atrophy noted. No masses or effusions noted. No tenderness to palpation. Able to SLR. No cords or calf tenderness. No significant calf/ankle edema. Full passive and active ROM, with mild pain. EHL/ TA/GS motor intact; SILT distally; 2+ DP pulses; Cap refill brisk. Tone and reflexes normal . Left Lower Extremity: Venous stasis of the leg. Muscle mass equal and symmetric to contralateral side. No atrophy noted. No masses or effusions noted. No tenderness to palpation. Able to SLR. No cords or calf tenderness. No significant calf/ankle edema. Full passive and active ROM, free from pain. EHL/ TA/GS motor intact; SILT distally; 2+ DP pulses; Cap refill brisk. Tone and reflexes normal . IMAGING I personally reviewed all radiographs and CT imaging. They demonstrate a right sided mildly displaced superior and inferior pubic rami fractures. There is also a chronic vertebral compression deformity of L5. ASSESSMENT AND PLAN Finesse Salmon is an 88 year old female presenting status post mechanical fall with (1) right sided superior and inferior pubic rami fractures, and (2) L5 chronic vertebral compression fracture. We have reviewed the imaging and clinical findings in detail, as well as their potential implications - No acute orthopedic intervention at this time - Physical therapy evaluation - WBAT with assistance - Pain control - DVT prophylaxis All questions were answered. Thank you for involving our team in the care of this patient. Please have patient follow up in our office in 2 weeks . Irving Perea, DO Orthopedic Surgery
--- NOTE | 2018-10-14 22:03 | HP ---
CHIEF COMPLAINT: fall, right pubic ramus fracture PCP: Daron HISTORY OF PRESENT ILLNESS: history obtained from granddaughter as patient is poor informant 88yo woman with medical problems stated below was walking with her family members around 1:30pm on 10/14 and tripped over speed bump and landed on her right hip, was in pain, unable to ambulate, brought to hospital with granddaughter and daughter. Fall was witnessed, there was no trauma to head or LOC. Imaging of pelvis showed fractures of right upper and lower pelvic ramus. Dr. Perea evaluated patient in ER and decided no surgical intervention. ER course was notable for: (1) pelvis CT (2) Hip x ray (3) tylenol Recent Travel: none PAST MEDICAL HISTORY: CKD, anemia, dementia, CHF, DLP PAST SURGICAL HISTORY: none reported Social History: Smoking:no Alcohol: occasional beer Drugs: no Family History: none reported Allergies No Known Allergies Allergy (Verified 10/14/18 16:00) HOME MEDICATIONS: Home Medications Medication Instructions Recorded Atorvastatin Ca [Lipitor] 10 mg PO HS 09/09/18 Hydralazine HCl 25 mg PO BID 09/09/18 Carvedilol [Coreg -] 6.25 mg PO BID #60 tablet 09/11/18 Furosemide [Lasix -] 40 mg PO DAILY #30 tablet 09/11/18 REVIEW OF SYSTEMS CONSTITUTIONAL: Absent: fever, chills, diaphoresis, generalized weakness, malaise, loss of appetite, weight change HEENT: Absent: rhinorrhea, nasal congestion, throat pain, throat swelling, difficulty swallowing, mouth swelling, ear pain, eye pain, visual changes CARDIOVASCULAR: Absent: chest pain, syncope, palpitations, irregular heart rate, lightheadedness , peripheral edema RESPIRATORY: Absent: cough, shortness of breath, dyspnea with exertion, orthopnea, wheezing, stridor, hemoptysis GASTROINTESTINAL: Absent: abdominal pain, abdominal distension, nausea, vomiting, diarrhea, constipation, melena, hematochezia GENITOURINARY: Absent: dysuria, frequency, urgency, hesitancy, hematuria, flank pain, genital pain MUSCULOSKELETAL: Absent: joint swelling, back pain, neck pain Present- myalgia, arthralgia, SKIN: Absent: rash, itching, pallor HEMATOLOGIC/IMMUNOLOGIC: Absent: easy bleeding, easy bruising, lymphadenopathy, frequent infections ENDOCRINE: Absent: unexplained weight gain, unexplained weight loss, heat intolerance, cold intolerance NEUROLOGIC: Absent: headache, focal weakness or paresthesias, dizziness, unsteady gait, seizure, mental status changes, bladder or bowel incontinence PSYCHIATRIC: Absent: anxiety, depression, suicidal or homicidal ideation, hallucinations. PHYSICAL EXAMINATION Vital Signs - 24 hr 10/14/18 10/14/18 15:43 17:14 Temperature 97.8 F Pulse Rate 77 Pulse Rate [ 69 Right] Respiratory 20 20 Rate Blood Pressure 177/70 H Blood Pressure 172/71 H [Left Arm] O2 Sat by Pulse 100 97 Oximetry (%) GENERAL: Awake, alert, and fully oriented, in no acute distress, appears frail HEAD: Normal with no signs of trauma. EYES: Pupils equal, round and reactive to light, extraocular movements intact, sclera anicteric, conjunctiva clear. No lid lag. EARS, NOSE, THROAT: Ears normal, nares patent, oropharynx clear without exudates. Moist mucous membranes. NECK: Normal range of motion, supple without lymphadenopathy, JVD, or masses. LUNGS: Breath sounds equal, clear to auscultation bilaterally. No wheezes, and no crackles. No accessory muscle use. HEART: Regular rate and rhythm, normal S1 and S2 without murmur, rub or gallop. ABDOMEN: Soft, nontender, not distended, normoactive bowel sounds, no guarding, no rebound, no masses. No hepatomegaly or splenomegaly. MUSCULOSKELETAL: tenderness in right groin, no other tenderness appreciated on palpation UPPER EXTREMITIES: 2+ pulses, warm, well-perfused. No cyanosis. No clubbing. No peripheral edema. LOWER EXTREMITIES: 2+ pulses, warm, well-perfused. Chronic b/l lower venous stasis changes NEUROLOGICAL: Cranial nerves II-XII intact. Normal speech. unable to ambulate PSYCHIATRIC: poor historian, normal mood SKIN: chronic lower ext b/l venous stasis changes Imaging studies reviewed ASSESSMENT/PLAN: #88yo woman s/p fall and right superior and inferior pubic ramus fractures on imaging. S/p evaluation by ortho and deemed not a candidate for surgery. -observation -bmp, cbc, ck, troponin ordered, informed nursing -complete bed rest/ immobilization for now -fall precuations -pain control- ibuprofen PO prn -ortho f/u -physical therapy -DVT ppx- lovenox ppx dose-renally dosed for CKD (seen on 09/10/18 labs ) #DLP- atorvastatin #CHF -hydralazine, carvedilol, furosemide (home meds) Visit type - Emergency Visit Emergency Visit: Yes ED Registration Date: 10/14/18 Care time: The patient presented to the Emergency Department on the above date and was hospitalized for further evaluation of their emergent condition. - New Patient This patient is new to me today: Yes Date on this admission: 10/15/18 - Critical Care Critical Care patient: No
[2018-10-14] MEDS: IBUPROFEN 400 MG TABLET (FP) PO PRN (22:23)
[2018-10-14 22:41] VITALS: BMI 21.1
[2018-10-14] MEDS: hydrALAZINE HCL 25 MG TABLET (FP) PO SCH (22:43)
[2018-10-14] MEDS: CARVEDILOL 6.25 MG TABLET (FP) PO SCH (22:44)
[2018-10-14] MEDS: ATORVASTATIN CA 10 MG TABLET (FP) PO SCH (22:44)
[2018-10-14 23:39] LABS: ALBUMIN 2.5 g/dl (3.5-5.0); BILIRUBIN,DIRECT 0.1 mg/dL (0.0-0.3); BILIRUBIN,TOTAL 0.4 mg/dl (0.2-1.0); TOT PROT 5.2 g/dl (6.4-8.3)
[2018-10-15 01:31] LABS: BASO % 0.6 % (0-2.0); EOS % 0.6 % (0-4.5); HEMATOCRIT 22.6 % (32.4-45.2); HEMOGLOBIN 7.9 GM/dL (10.7-15.3); LYMPH % 19.7 % (8-40); MCH 29.8 pg (25.7-33.7); MCHC 35.1 g/dl (32.0-36.0); MEAN CELL VOLUME 84.8 fl (80-96); MEAN PLT VOLUME 9.1 fl (7.5-11.1); MONO % 6.9 % (3.8-10.2); NEUT % 72.2 % (42.8-82.8); PLATELET COUNT 198 K/MM3 (134-434); RBC 2.67 M/mm3 (3.60-5.2); RDW 14.1 % (11.6-15.6); WHITE BLOOD COUNT 5.7 K/mm3 (4.0-10.0)
[2018-10-15 01:56] LABS: ALBUMIN 2.4 g/dl (3.4-5.0); ALK PHOS 117 U/L (45-117); ANION GAP 9 MMOL/L (8-16); BILIRUBIN,TOTAL 0.2 mg/dL (0.2-1); BLOOD UREA NITROGEN 44 mg/dL (7-18); CALCIUM 7.4 mg/dL (8.5-10.1); CHLORIDE 111 mmol/L (98-107); CO2 21 mmol/L (21-32); CREATININE 2.4 mg/dL (0.55-1.3); GLUCOSE,RANDOM 181 mg/dL (74-106); POTASSIUM 4.6 mmol/L (3.5-5.1); SGOT/AST 16 U/L (15-37); SGPT/ALT 13 U/L (13-61); SODIUM 141 mmol/L (136-145); TOT PROT 5.2 g/dl (6.4-8.2)
[2018-10-15] MEDS: INSULIN SLIDING SCALE (NOVOLOG) 1 VIAL SQ SCH ×4 (06:50→21:11)
[2018-10-15 07:22] LABS: HEMATOCRIT 25.8 % (32.4-45.2); HEMOGLOBIN 8.5 GM/dl (10.7-15.3); MCH 28.5 pg (25.7-33.7); MCHC 32.8 g/dl (32.0-36.0); MEAN CELL VOLUME 86.6 fl (80-96); MEAN PLT VOLUME 8.9 fl (7.5-11.1); PLATELET COUNT 212 K/MM3 (134-434); RBC 2.98 M/mm3 (3.60-5.2); RDW 13.7 % (11.6-15.6); WHITE BLOOD COUNT 5.9 K/mm3 (4.0-10.8)
[2018-10-15 07:46] LABS: ANION GAP 4 MMOL/L (8-16); BLOOD UREA NITROGEN 46 mg/dl (7-18); CALCIUM 7.7 mg/dl (8.4-10.2); CHLORIDE 111 mmol/L (98-107); CO2 22 mmol/L (22-28); CREATININE 2.4 mg/dl (0.6-1.3); GLUCOSE,RANDOM 108 mg/dl (74-106); POTASSIUM 4.7 mmol/L (3.5-5.1); SODIUM 137 mmol/L (136-145)
[2018-10-15] MEDS: CARVEDILOL 6.25 MG TABLET (FP) PO SCH ×2 (09:21→21:10)
[2018-10-15] MEDS: hydrALAZINE HCL 25 MG TABLET (FP) PO SCH ×2 (09:21→21:10)
[2018-10-15] MEDS: IBUPROFEN 400 MG TABLET (FP) PO PRN (09:21)
[2018-10-15] MEDS: HEPARIN NA (PORCINE) 5,000 UNITS/ML 1ML VIAL SQ SCH ×2 (09:23→21:09)
[2018-10-15] MEDS ORDERED: FUROSEMIDE 40 MG TABLET (FP) PO SCH (10:00)
[2018-10-15] MEDS ORDERED: ENOXAPARIN NA (PORCINE) 30 MG/0.3 ML DISP.SYRIN SQ SCH (10:00)
--- NOTE | 2018-10-15 10:14 | PN ---
Physical Exam: SUBJECTIVE: Patient seen and examined OBJECTIVE: Vital Signs Period Temp Pulse Resp BP Sys/Ya Pulse Ox Last 24 Hr 97.8 F-98.7 F 65-77 17-20 145-177/48-71 96-100 GENERAL: The patient is awake, alert, and fully oriented, in no acute distress. HEAD: Normal with no signs of trauma. EYES: PERRL, extraocular movements intact, sclera anicteric, conjunctiva clear. No ptosis. ENT: Ears normal, nares patent, oropharynx clear without exudates, moist mucous membranes. NECK: Trachea midline, full range of motion, supple. LUNGS: Breath sounds equal, clear to auscultation bilaterally, no wheezes, no crackles, no accessory muscle use. HEART: Regular rate and rhythm, S1, S2 without murmur, rub or gallop. ABDOMEN: Soft, nontender, nondistended, normoactive bowel sounds, no guarding, no rebound, no hepatosplenomegaly, no masses. EXTREMITIES: 2+ pulses, warm, well-perfused, no edema. NEUROLOGICAL: Cranial nerves II through XII grossly intact. Normal speech, gait not observed. PSYCH: Normal mood, normal affect. SKIN: Warm, dry, normal turgor, no rashes or lesions noted Laboratory Results - last 24 hr 10/14/18 10/14/18 10/15/18 23:15 23:15 00:15 WBC 5.7 RBC 2.67 L Hgb 7.9 L Hct 22.6 L D MCV 84.8 MCH 29.8 MCHC 35.1 RDW 14.1 Plt Count 198 D MPV 9.1 Absolute Neuts (auto) 4.1 Neutrophils % 72.2 Lymphocytes % 19.7 D Monocytes % 6.9 Eosinophils % 0.6 Basophils % 0.6 Nucleated RBC % 0 Sodium Cancelled Potassium Cancelled Chloride Cancelled Carbon Dioxide Cancelled Anion Gap Cancelled BUN Cancelled Creatinine Cancelled Creat Clearance w eGFR Cancelled POC Glucometer Random Glucose Cancelled Hemoglobin A1c % Calcium Cancelled Total Bilirubin 0.4 Direct Bilirubin 0.1 AST 18 ALT 11 Alkaline Phosphatase 105 H Creatine Kinase 184 Creatine Kinase Index 1.0 CK-MB (CK-2) 2.0 Troponin I Total Protein 5.2 L Albumin 2.5 L 10/15/18 10/15/18 10/15/18 00:16 06:45 07:00 WBC 5.9 RBC 2.98 L Hgb 8.5 L Hct 25.8 L MCV 86.6 MCH 28.5 MCHC 32.8 RDW 13.7 Plt Count 212 MPV 8.9 Absolute Neuts (auto) Neutrophils % Lymphocytes % Monocytes % Eosinophils % Basophils % Nucleated RBC % Sodium 141 Potassium 4.6 Chloride 111 H Carbon Dioxide 21 Anion Gap 9 BUN 44 H Creatinine 2.4 H Creat Clearance w eGFR 19.10 POC Glucometer 124 Random Glucose 181 H Hemoglobin A1c % Calcium 7.4 L Total Bilirubin 0.2 Direct Bilirubin AST 16 ALT 13 Alkaline Phosphatase 117 Creatine Kinase 190 Creatine Kinase Index 0.9 CK-MB (CK-2) 1.8 Troponin I 0.02 Total Protein 5.2 L Albumin 2.4 L 10/15/18 10/15/18 07:00 07:00 WBC RBC Hgb Hct MCV MCH MCHC RDW Plt Count MPV Absolute Neuts (auto) Neutrophils % Lymphocytes % Monocytes % Eosinophils % Basophils % Nucleated RBC % Sodium 137 Potassium 4.7 Chloride 111 H Carbon Dioxide 22 Anion Gap 4 L BUN 46 H Creatinine 2.4 H Creat Clearance w eGFR 19.10 POC Glucometer Random Glucose 108 H Hemoglobin A1c % 6.4 H Calcium 7.7 L Total Bilirubin Direct Bilirubin AST ALT Alkaline Phosphatase Creatine Kinase Creatine Kinase Index CK-MB (CK-2) Troponin I Total Protein Albumin Active Medications Generic Name Dose Route Start Last Admin Trade Name Freq PRN Reason Stop Dose Admin Atorvastatin Calcium 10 mg 10/14/18 22:00 10/14/18 22:44 Lipitor - PO Not Given HS PENELOPE Carvedilol 6.25 mg 10/14/18 22:00 10/15/18 09:21 Coreg - PO 6.25 mg BID PENELOPE Administration Furosemide 40 mg 10/15/18 10:00 10/15/18 09:23 Lasix - PO 40 mg DAILY PENELOPE Administration Heparin Sodium (Porcine) 5,000 unit 10/15/18 10:00 10/15/18 09:23 Heparin - SQ 5,000 unit BID PENELOPE Administration Hydralazine HCl 25 mg 10/14/18 22:00 10/15/18 09:21 Apresoline - PO 25 mg BID PENELOPE Administration Ibuprofen 400 mg 10/14/18 21:51 10/15/18 09:21 Motrin - PO 400 mg Q6H PRN Administration PAIN LEVEL 6-10 Insulin Aspart 1 vial 10/15/18 07:00 10/15/18 06:50 Novolog Vial Sliding Scale - SQ Not Given ACHS [facility] Protocol ASSESSMENT/PLAN: Finesse Salmon is an 88 year old female presenting status post mechanical fall with (1) right sided superior and inferior pubic rami fractures, and (2) L5 chronic vertebral compression fracture. We have reviewed the imaging and clinical findings in detail, as well as their potential implications - No acute orthopedic intervention at this time - Physical therapy evaluation - WBAT with assistance - Pain control - DVT prophylaxis All questions were answered. Thank you for involving our team in the care of this patient. Please have patient follow up in our office in 2 weeks . Irving Perea, DO Orthopedic Surgery
--- NOTE | 2018-10-15 11:18 | DS ---
Physical Exam: SUBJECTIVE: Patient seen and examined OBJECTIVE: Vital Signs Period Temp Pulse Resp BP Sys/Ya Pulse Ox Last 24 Hr 97.8 F-98.7 F 65-77 17-20 145-177/48-71 96-100 PHYSICAL EXAM GENERAL: The patient is awake, alert, and fully oriented, in no acute distress. HEAD: Normal with no signs of trauma. EYES: PERRL, extraocular movements intact, sclera anicteric, conjunctiva clear. ENT: Ears normal, nares patent, oropharynx clear without exudates, moist mucous membranes. NECK: Trachea midline, full range of motion, supple. LUNGS: Breath sounds equal, clear to auscultation bilaterally, no wheezes, no crackles, no accessory muscle use. HEART: Regular rate and rhythm, S1, S2 without murmur, rub or gallop. ABDOMEN: Soft, nontender, nondistended, normoactive bowel sounds, no guarding, no rebound, no hepatosplenomegaly, no masses. EXTREMITIES: 2+ pulses, warm, well-perfused, no edema. NEUROLOGICAL: Cranial nerves II through XII grossly intact. Normal speech, gait not observed. PSYCH: Normal mood, normal affect. SKIN: Warm, dry, normal turgor, no rashes or lesions noted. LABS Laboratory Results - last 24 hr 10/14/18 10/14/18 10/15/18 23:15 23:15 00:15 WBC 5.7 RBC 2.67 L Hgb 7.9 L Hct 22.6 L D MCV 84.8 MCH 29.8 MCHC 35.1 RDW 14.1 Plt Count 198 D MPV 9.1 Absolute Neuts (auto) 4.1 Neutrophils % 72.2 Lymphocytes % 19.7 D Monocytes % 6.9 Eosinophils % 0.6 Basophils % 0.6 Nucleated RBC % 0 Sodium Cancelled Potassium Cancelled Chloride Cancelled Carbon Dioxide Cancelled Anion Gap Cancelled BUN Cancelled Creatinine Cancelled Creat Clearance w eGFR Cancelled POC Glucometer Random Glucose Cancelled Hemoglobin A1c % Calcium Cancelled Total Bilirubin 0.4 Direct Bilirubin 0.1 AST 18 ALT 11 Alkaline Phosphatase 105 H Creatine Kinase 184 Creatine Kinase Index 1.0 CK-MB (CK-2) 2.0 Troponin I Total Protein 5.2 L Albumin 2.5 L 10/15/18 10/15/18 10/15/18 00:16 06:45 07:00 WBC 5.9 RBC 2.98 L Hgb 8.5 L Hct 25.8 L MCV 86.6 MCH 28.5 MCHC 32.8 RDW 13.7 Plt Count 212 MPV 8.9 Absolute Neuts (auto) Neutrophils % Lymphocytes % Monocytes % Eosinophils % Basophils % Nucleated RBC % Sodium 141 Potassium 4.6 Chloride 111 H Carbon Dioxide 21 Anion Gap 9 BUN 44 H Creatinine 2.4 H Creat Clearance w eGFR 19.10 POC Glucometer 124 Random Glucose 181 H Hemoglobin A1c % Calcium 7.4 L Total Bilirubin 0.2 Direct Bilirubin AST 16 ALT 13 Alkaline Phosphatase 117 Creatine Kinase 190 Creatine Kinase Index 0.9 CK-MB (CK-2) 1.8 Troponin I 0.02 Total Protein 5.2 L Albumin 2.4 L 10/15/18 10/15/18 07:00 07:00 WBC RBC Hgb Hct MCV MCH MCHC RDW Plt Count MPV Absolute Neuts (auto) Neutrophils % Lymphocytes % Monocytes % Eosinophils % Basophils % Nucleated RBC % Sodium 137 Potassium 4.7 Chloride 111 H Carbon Dioxide 22 Anion Gap 4 L BUN 46 H Creatinine 2.4 H Creat Clearance w eGFR 19.10 POC Glucometer Random Glucose 108 H Hemoglobin A1c % 6.4 H Calcium 7.7 L Total Bilirubin Direct Bilirubin AST ALT Alkaline Phosphatase Creatine Kinase Creatine Kinase Index CK-MB (CK-2) Troponin I Total Protein Albumin HOSPITAL COURSE: Date of Admission:10/14/18 Date of Discharge: 10/15/18 Finesse Salmon is an 88 year old female presenting status post mechanical fall with (1) right sided superior and inferior pubic rami fractures, and (2) L5 chronic vertebral compression fracture. We have reviewed the imaging and clinical findings in detail, as well as their potential implications - No acute orthopedic intervention at this time - Physical therapy evaluation - WBAT with assistance - Pain control - DVT prophylaxis All questions were answered. Thank you for involving our team in the care of this patient. Please have patient follow up in our office in 2 weeks . Irving Perea, DO Orthopedic Surgery Minutes to complete discharge: 35 Discharge Summary Reason For Visit: CONTUSION RIGHT HIP/FX OF PUBIC RAMUS Current Active Problems Contusion, hip (Acute) Pubic ramus fracture (Acute) Condition: Improved - Instructions Diet, Activity, Other Instructions: It is recommended you take Tylenol for pain. Avoid motrin, ibuprofen, Alleve, naprosyn, and any product containing aspirin. It is important you follow up with Dr. Perea, the orthopedist who saw you in the hospital, in two weeks. Return to the emergency department for any new or worsening symptoms. Referrals: Irving Perea DO [Staff Physician] - 2 Weeks - Home Medications Comprehensive Discharge Medication List: Ambulatory Orders Atorvastatin Ca [Lipitor] 10 mg PO HS 09/09/18 Hydralazine HCl 25 mg PO BID 09/09/18 Carvedilol [Coreg -] 6.25 mg PO BID #60 tablet 09/11/18 Furosemide [Lasix -] 40 mg PO DAILY #30 tablet 09/11/18 This patient is new to me today: Yes Date on this admission: 10/15/18 Emergency Visit: Yes ED Registration Date: 10/14/18 Care time: The patient presented to the Emergency Department on the above date and was hospitalized for further evaluation of their emergent condition. Critical Care patient: No - Discharge Referral Referred to [facility] Med [facility].C[facility] No
--- NOTE | 2018-10-15 14:53 | PN ---
Physical Exam: SUBJECTIVE: Patient seen and examined. Ambulated with PT this morning. Had some pain with walking, improved with rest. OBJECTIVE: Vital Signs Period Temp Pulse Resp BP Sys/Ya Pulse Ox Last 24 Hr 97.8 F-98.7 F 60-77 16-20 117-177/43-71 96-100 GENERAL: The patient is awake, alert, and fully oriented, in no acute distress. LUNGS: Breath sounds CTA HEART: Regular rate and rhythm, S1, S2 ABDOMEN: Soft, nontender, nondistended, normoactive bowel sounds LOWER EXTREMITIES: 2+ pulses, warm, well-perfused; trace edema b/l; dry flaking skin; venous stasis changes NEUROLOGICAL: Cranial nerves II through XII grossly intact. Normal speech; unsteady gait with walker observed Laboratory Results - last 24 hr 10/14/18 10/14/18 10/15/18 23:15 23:15 00:15 WBC 5.7 RBC 2.67 L Hgb 7.9 L Hct 22.6 L D MCV 84.8 MCH 29.8 MCHC 35.1 RDW 14.1 Plt Count 198 D MPV 9.1 Absolute Neuts (auto) 4.1 Neutrophils % 72.2 Lymphocytes % 19.7 D Monocytes % 6.9 Eosinophils % 0.6 Basophils % 0.6 Nucleated RBC % 0 Sodium Cancelled Potassium Cancelled Chloride Cancelled Carbon Dioxide Cancelled Anion Gap Cancelled BUN Cancelled Creatinine Cancelled Creat Clearance w eGFR Cancelled POC Glucometer Random Glucose Cancelled Hemoglobin A1c % Calcium Cancelled Total Bilirubin 0.4 Direct Bilirubin 0.1 AST 18 ALT 11 Alkaline Phosphatase 105 H Creatine Kinase 184 Creatine Kinase Index 1.0 CK-MB (CK-2) 2.0 Troponin I Total Protein 5.2 L Albumin 2.5 L 10/15/18 10/15/18 10/15/18 00:16 06:45 07:00 WBC 5.9 RBC 2.98 L Hgb 8.5 L Hct 25.8 L MCV 86.6 MCH 28.5 MCHC 32.8 RDW 13.7 Plt Count 212 MPV 8.9 Absolute Neuts (auto) Neutrophils % Lymphocytes % Monocytes % Eosinophils % Basophils % Nucleated RBC % Sodium 141 Potassium 4.6 Chloride 111 H Carbon Dioxide 21 Anion Gap 9 BUN 44 H Creatinine 2.4 H Creat Clearance w eGFR 19.10 POC Glucometer 124 Random Glucose 181 H Hemoglobin A1c % Calcium 7.4 L Total Bilirubin 0.2 Direct Bilirubin AST 16 ALT 13 Alkaline Phosphatase 117 Creatine Kinase 190 Creatine Kinase Index 0.9 CK-MB (CK-2) 1.8 Troponin I 0.02 Total Protein 5.2 L Albumin 2.4 L 10/15/18 10/15/18 10/15/18 07:00 07:00 11:15 WBC RBC Hgb Hct MCV MCH MCHC RDW Plt Count MPV Absolute Neuts (auto) Neutrophils % Lymphocytes % Monocytes % Eosinophils % Basophils % Nucleated RBC % Sodium 137 Potassium 4.7 Chloride 111 H Carbon Dioxide 22 Anion Gap 4 L BUN 46 H Creatinine 2.4 H Creat Clearance w eGFR 19.10 POC Glucometer 201 Random Glucose 108 H Hemoglobin A1c % 6.4 H Calcium 7.7 L Total Bilirubin Direct Bilirubin AST ALT Alkaline Phosphatase Creatine Kinase Creatine Kinase Index CK-MB (CK-2) Troponin I Total Protein Albumin Active Medications Generic Name Dose Route Start Last Admin Trade Name Freq PRN Reason Stop Dose Admin Atorvastatin Calcium 10 mg 10/14/18 22:00 10/14/18 22:44 Lipitor - PO Not Given HS PENELOPE Carvedilol 6.25 mg 10/14/18 22:00 10/15/18 09:21 Coreg - PO 6.25 mg BID PENELOPE Administration Furosemide 40 mg 10/15/18 10:00 10/15/18 09:23 Lasix - PO 40 mg DAILY PENELOPE Administration Heparin Sodium (Porcine) 5,000 unit 10/15/18 10:00 10/15/18 09:23 Heparin - SQ 5,000 unit BID PENELOPE Administration Hydralazine HCl 25 mg 10/14/18 22:00 10/15/18 09:21 Apresoline - PO 25 mg BID PENELOPE Administration Ibuprofen 400 mg 10/14/18 21:51 10/15/18 09:21 Motrin - PO 400 mg Q6H PRN Administration PAIN LEVEL 6-10 Insulin Aspart 1 vial 10/15/18 07:00 10/15/18 11:19 Novolog Vial Sliding Scale - SQ 4 units ACHS PENELOPE Administration Protocol ASSESSMENT/PLAN 88 year-old woman with a PMH significant for diastolic heart failure, HF, anemia , CKD, and dementia DLP admitted for multiple pubic rami fractures s/p mechanical fall. ER course was notable for: (1) pelvis CT (2) Hip x ray (3) tylenol Pubic rami fractures -- nondisplaced fractures --seen and evaluated by ortho, no surgical intervention indicated --Tylenol PRN Diastolic heart failure Severe pulmonary hypertension --one month ago admitted for HF exacerbation; 09/10 echo: LV with preserved EF 60%; BLAE; moderate TR; severe pHTN; mild AI; trace PI --10/14 CXR shows improvement from one month ago but still with some fluid on right CKD --BUN and Cr elevated above baseline --hold PO lasix; no fluids due to CHF Parkinsonism features --granddaughter advises of onset of shuffling, forward leaning gait for several months; has also noted intermittent hand tremors worse than baseline over same period of time --discussed with Dr. Mace, PCP; neuro consult placed to assess for Parkinson's disease FEN --PO intake adequate --Electrolytes: replete as indicated --Nutrition: low sodium, diabetic DVT prophylaxis: subq heparin Physical therapy Dispo: continues to require inpatient care. Full code. Visit type - Emergency Visit Emergency Visit: Yes ED Registration Date: 10/14/18 Care time: The patient presented to the Emergency Department on the above date and was hospitalized for further evaluation of their emergent condition. - New Patient This patient is new to me today: Yes Date on this admission: 10/15/18 - Critical Care Critical Care patient: No
[2018-10-15] MEDS ORDERED: SODIUM CHLORIDE 500 ML IV ONE (16:09)
--- NOTE | 2018-10-15 16:23 | EKG ---
Test Reason : Blood Pressure : / mmHG Vent. Rate : 069 BPM Atrial Rate : 069 BPM P-R Int : 116 ms QRS Dur : 110 ms QT Int : 446 ms P-R-T Axes : 099 003 021 degrees QTc Int : 477 ms NORMAL SINUS RHYTHM INCOMPLETE RIGHT BUNDLE BRANCH BLOCK BORDERLINE ECG WHEN COMPARED WITH ECG OF 10-SEP-2018 12:22, PREMATURE SUPRAVENTRICULAR COMPLEXES ARE NO LONGER PRESENT Confirmed by RADHA GALEANO, WEST ([id number]) on 10/15/2018 4:23:16 PM Referred By: Raúl Pat Confirmed By:WEST GARCIA MD
--- NOTE | 2018-10-15 16:37 | PN ---
Progress Note (short form) - Note Progress Note: ORTHOPEDIC SURGERY PROGRESS NOTE Department of Orthopedic Surgery SUBJECTIVE No acute events overnight. No complaints currently. Denies chest pain, shortness of breath, or calf pain. No nausea or vomiting. Tolerating oral intake. Pain control difficult overnight, but improving. Ambulating with PT. Intake & Output 10/13/18 10/14/18 10/15/18 23:59 23:59 23:59 Intake Total 250 575 Balance 250 575 Intake: Oral 250 575 Other: Voiding Method Toilet Toilet # Unmeasured Voids Void 0 1 Weight 94 lb 6 oz Height 4 ft 8 in Body Mass Index (BMI) 21.1 Weight Measurement Method Standing Scale Active Medications Generic Name Dose Route Start Last Admin Trade Name Freq PRN Reason Stop Dose Admin Acetaminophen 650 mg 10/15/18 16:01 Tylenol - PO Q6H PRN PAIN LEVEL 1-5 Atorvastatin Calcium 10 mg 10/14/18 22:00 10/14/18 22:44 Lipitor - PO Not Given HS PENELOPE Carvedilol 6.25 mg 10/14/18 22:00 10/15/18 09:21 Coreg - PO 6.25 mg BID PENELOPE Administration Emollient Ointment 1 applic 10/15/18 22:00 Aquaphor - TP BID PENELOPE Heparin Sodium (Porcine) 5,000 unit 10/15/18 10:00 10/15/18 09:23 Heparin - SQ 5,000 unit BID PENELOPE Administration Hydralazine HCl 25 mg 10/14/18 22:00 10/15/18 09:21 Apresoline - PO 25 mg BID PENELOPE Administration Insulin Aspart 1 vial 10/15/18 07:00 10/15/18 11:19 Novolog Vial Sliding Scale - SQ 4 units ACHS PENELOPE Administration Protocol Vital Signs (last) Temp Pulse Resp BP Pulse Ox 98.4 F 60 16 117/43 L 99 10/15/18 14:07 10/15/18 14:07 10/15/18 14:07 10/15/18 14:07 10/15/18 14:07 Laboratory 10/15/18 07:00 10/15/18 07:00 PHYSICAL EXAMINATION General: Alert, oriented, cooperative and no distress. Lower Extremity: Skin intact, no lesions, rashes or ulcers noted. Muscle mass equal and symmetric to contralateral side. No atrophy noted. No masses or effusions noted. No tenderness to palpation. Full passive and active ROM, with mild pain. EHL/TA/GS motor intact; SILT distally; 2+ DP pulses; Cap refill brisk. DVT Exam: No evidence of DVT seen on physical exam; No cords or calf tenderness ; No significant calf/ankle edema. IMAGING Radiographs and CT demonstrate superior and inferior pubic rami fractures ASSESSMENT AND PLAN Finesse Gill is an 88 year old female with (1) superior and inferior pubic rami fractures, and (2) L5 chronic vertebral compression fracture. - Pain control: Transition to oral pain medications, minimize narcotic use - DVT prophylaxis - Elevate HOB, encourage oral intake - Appreciate medical management (Nutrition optimization, decubitus precautions heel/sacrum) - PT/OT; WBAT Irving Perea, Orthopedic Surgery
--- NOTE | 2018-10-15 18:23 | CON.NEURO ---
Consult - Alcohol/Substance Use Hx Alcohol Use: No - Smoking History Smoking history: Never smoked Have you smoked in the past 12 months: No Home Medications - Allergies Allergies/Adverse Reactions: Allergies Allergy/AdvReac Type Severity Reaction Status Date / Time No Known Allergies Allergy Verified 10/14/18 16:00 - Home Medications Home Medications: Ambulatory Orders Atorvastatin Ca [Lipitor] 10 mg PO HS 09/09/18 Hydralazine HCl 25 mg PO BID 09/09/18 Carvedilol [Coreg -] 6.25 mg PO BID #60 tablet 09/11/18 Furosemide [Lasix -] 40 mg PO DAILY #30 tablet 09/11/18 Physical Exam-Neuro Vital Signs: Vital Signs Temperature 98.4 F 10/15/18 14:07 Pulse Rate 60 10/15/18 14:07 Respiratory Rate 16 10/15/18 14:07 Blood Pressure 117/43 L 10/15/18 14:07 O2 Sat by Pulse Oximetry (%) 99 10/15/18 14:07 Labs: CBC, BMP 10/15/18 07:00 10/15/18 07:00 Assessment/Plan cc Fall HPI 88 year old female history of Dementia, ckd, anemia, chf. She has tripped and had a fall. As per grand daughter, she has mild essnetial tremor, but no resting tremor or rigidity. She is found to have pelvic fracture. No surgery was offered. Patient also suffer from mild dementia. There has not been any masked facies. PAST MEDICAL HISTORY: CKD, anemia, dementia, CHF, DLP PAST SURGICAL HISTORY: none reported Social History: Lives in independent house and no toxic habits Family History: Non contributory No Known Allergies Allergy (Verified 10/14/18 16:00) HOME MEDICATIONS: Home Medications Medication Instructions Recorded Atorvastatin Ca [Lipitor] 10 mg PO HS 09/09/18 Hydralazine HCl 25 mg PO BID 09/09/18 Carvedilol [Coreg -] 6.25 mg PO BID #60 tablet 09/11/18 Furosemide [Lasix -] 40 mg PO DAILY #30 tablet 09/11/18 ROS reviewed in chart Neurological Examiantion Alert , says she is in hospital and date she coudl not tell, no masked facies, eomi, pupils reactive and no face asymmetry moving all extremity there is pain in right hip flexion strength is 5/5 all extremity sensation is normal no rigidity identified, no resting tremors were seen FTN is normal in upper extremity no brain imaging Assessment/Plan Fall seems to be isolated event due to tripping. She is quite frail due to multiple medical condition including dementia. Clinically there is no evidence of Parkinson disease. Plan: no evidence of PD or stroke at this time - no need for brain imaging - she would benefit from short term rehab - Findings were discussed with provider Thanking you so much Mateusz Grimes MD
[2018-10-15] MEDS: MINERAL OIL/PET HY-PHL TOPICAL OINTMENT 454 GM JAR TP SCH (21:07)
[2018-10-15] MEDS: ATORVASTATIN CA 10 MG TABLET (FP) PO SCH (21:10)
[2018-10-16] MEDS: INSULIN SLIDING SCALE (NOVOLOG) 1 VIAL SQ SCH ×4 (06:30→21:47)
[2018-10-16] MEDS: hydrALAZINE HCL 25 MG TABLET (FP) PO SCH ×2 (09:30→21:41)
[2018-10-16] MEDS: CARVEDILOL 6.25 MG TABLET (FP) PO SCH ×2 (09:30→21:41)
[2018-10-16] MEDS: MINERAL OIL/PET HY-PHL TOPICAL OINTMENT 454 GM JAR TP SCH ×2 (09:31→21:41)
[2018-10-16] MEDS: ACETAMINOPHEN 325 MG TABLET (FP) PO PRN ×2 (09:31→18:24)
[2018-10-16] MEDS: HEPARIN NA (PORCINE) 5,000 UNITS/ML 1ML VIAL SQ SCH ×2 (09:32→21:41)
[2018-10-16] MEDS: ATORVASTATIN CA 10 MG TABLET (FP) PO SCH (21:41)
[2018-10-16] MEDS ORDERED: INSULIN (NOVOLOG) ASPART 100 UNITS/ML 10ML VIAL ONE (21:47)
[2018-10-17] MEDS: INSULIN SLIDING SCALE (NOVOLOG) 1 VIAL SQ SCH ×4 (06:58→21:26)
[2018-10-17] MEDS: MINERAL OIL/PET HY-PHL TOPICAL OINTMENT 454 GM JAR TP SCH ×2 (10:01→21:25)
[2018-10-17] MEDS: CARVEDILOL 6.25 MG TABLET (FP) PO SCH ×2 (10:01→21:25)
[2018-10-17] MEDS: hydrALAZINE HCL 25 MG TABLET (FP) PO SCH ×2 (10:01→21:25)
[2018-10-17] MEDS: HEPARIN NA (PORCINE) 5,000 UNITS/ML 1ML VIAL SQ SCH ×2 (10:02→21:26)
--- NOTE | 2018-10-17 10:25 | PN ---
Physical Exam: SUBJECTIVE: Patient seen and examined OBJECTIVE: Vital Signs Period Temp Pulse Resp BP Sys/Ya Pulse Ox Last 24 Hr 97.8 F-99.1 F 58-75 16-19 114-148/42-73 95-99 GENERAL: The patient is awake, alert, and fully oriented, in no acute distress. LUNGS: Breath sounds CTA HEART: Regular rate and rhythm, S1, S2 ABDOMEN: Soft, nontender, nondistended, normoactive bowel sounds LOWER EXTREMITIES: 2+ pulses, warm, well-perfused; trace edema b/l; dry flaking skin; venous stasis changes NEUROLOGICAL: Cranial nerves II through XII grossly intact. Normal speech; gait not observed today Laboratory Results - last 24 hr 10/16/18 10/16/18 10/16/18 11:29 16:44 21:44 POC Glucometer 190 107 184 10/17/18 06:57 POC Glucometer 113 Active Medications Generic Name Dose Route Start Last Admin Trade Name Freq PRN Reason Stop Dose Admin Acetaminophen 650 mg 10/15/18 16:01 10/16/18 18:24 Tylenol - PO 650 mg Q6H PRN Administration PAIN LEVEL 1-5 Atorvastatin Calcium 10 mg 10/14/18 22:00 10/16/18 21:41 Lipitor - PO 10 mg HS PENELOPE Administration Carvedilol 6.25 mg 10/14/18 22:00 10/17/18 10:01 Coreg - PO 6.25 mg BID PENELOPE Administration Emollient Ointment 1 applic 10/15/18 22:00 10/17/18 10:01 Aquaphor - TP 1 applic BID PENELOPE Administration Heparin Sodium (Porcine) 5,000 unit 10/15/18 10:00 10/17/18 10:02 Heparin - SQ 5,000 unit BID PENELOPE Administration Hydralazine HCl 25 mg 10/14/18 22:00 10/17/18 10:01 Apresoline - PO 25 mg BID PENELOPE Administration Insulin Aspart 1 vial 10/15/18 07:00 10/17/18 06:58 Novolog Vial Sliding Scale - SQ Not Given ACHS [facility] Protocol ASSESSMENT/PLAN: 88 year-old woman with a PMH significant for diastolic heart failure, HF, anemia , CKD, and dementia. Admitted for pubic rami fractures s/p mechanical fall. Pubic rami fractures --nondisplaced fractures --seen and evaluated by ortho, no surgical intervention indicated --Tylenol PRN Diastolic heart failure Severe pulmonary hypertension --one month ago admitted for HF exacerbation; 09/10 echo: LV with preserved EF 60%; BLAE; moderate TR; severe pHTN; mild AI; trace PI --10/14 CXR shows improvement from one month ago but still with some fluid on right --holding lasix due to elevated Cr CKD --BUN and Cr elevated above baseline --hold PO lasix; no fluids due to CHF --repeat labs in am Parkinsonism features --granddaughter advises of onset of shuffling, forward leaning gait for several months; has also noted intermittent hand tremors worse than baseline over same period of time --seen and evaluated by neuro: clinically no evidence of Parkinson disease, no need for imaging FEN --PO intake adequate --Electrolytes: replete as indicated --Nutrition: low sodium, diabetic DVT prophylaxis: subq heparin Physical therapy Dispo: continues to require inpatient care. Full code. Visit type - Emergency Visit Emergency Visit: Yes ED Registration Date: 10/14/18 Care time: The patient presented to the Emergency Department on the above date and was hospitalized for further evaluation of their emergent condition. - New Patient This patient is new to me today: No - Critical Care Critical Care patient: No
--- NOTE | 2018-10-17 10:25 | PN ---
Physical Exam: SUBJECTIVE: Patient seen and examined oob to chair. Eating lunch. Still has pain with ambulation. OBJECTIVE: Vital Signs Period Temp Pulse Resp BP Sys/Ya Pulse Ox Last 24 Hr 97.8 F-99.1 F 58-75 16-19 114-148/42-73 95-99 GENERAL: The patient is awake, alert, and fully oriented, in no acute distress. LUNGS: Breath sounds CTA HEART: Regular rate and rhythm, S1, S2 ABDOMEN: Soft, nontender, nondistended, normoactive bowel sounds LOWER EXTREMITIES: 2+ pulses, warm, well-perfused; trace edema b/l; dry flaking skin; venous stasis changes NEUROLOGICAL: Cranial nerves II through XII grossly intact. Normal speech; gait not observed today Laboratory Results - last 24 hr 10/16/18 10/16/18 10/16/18 11:29 16:44 21:44 POC Glucometer 190 107 184 Active Medications Generic Name Dose Route Start Trade Name Freq PRN Reason Stop Acetaminophen 650 mg 10/15/18 16:01 Tylenol - PO Q6H PRN PAIN LEVEL 1-5 Atorvastatin Calcium 10 mg 10/14/18 22:00 Lipitor - PO HS PENELOPE Carvedilol 6.25 mg 10/14/18 22:00 Coreg - PO BID [facility] Emollient Ointment 1 applic 10/15/18 22:00 Aquaphor - TP BID PENELOPE Heparin Sodium (Porcine) 5,000 unit 10/15/18 10:00 Heparin - SQ BID P[facility]ELOPE Hydralazine HCl 25 mg 10/14/18 22:00 Apresoline - PO BID [facility] Insulin Aspart 1 vial 10/15/18 07:00 Novolog Vial Sliding Scale - SQ ACHS [facility] Protocol ASSESSMENT/PLAN: 88 year-old woman with a PMH significant for diastolic heart failure, HF, anemia , CKD, and dementia. Admitted for pubic rami fractures s/p mechanical fall. Pubic rami fractures --nondisplaced fractures --seen and evaluated by ortho, no surgical intervention indicated --Tylenol PRN Diastolic heart failure Severe pulmonary hypertension --one month ago admitted for HF exacerbation; 09/10 echo: LV with preserved EF 60%; BLAE; moderate TR; severe pHTN; mild AI; trace PI --1/ CXR shows improvement from one month ago but still with some fluid on right --holding lasix due to elevated Cr CKD --BUN and Cr elevated above baseline --hold PO lasix; no fluids due to CHF Parkinsonism features --granddaughter advises of onset of shuffling, forward leaning gait for several months; has also noted intermittent hand tremors worse than baseline over same period of time --seen and evaluated by neuro: clinically no evidence of Parkinson disease, no need for imaging FEN --PO intake adequate --Electrolytes: replete as indicated --Nutrition: low sodium, diabetic DVT prophylaxis: subq heparin Physical therapy Dispo: continues to require inpatient care. Full code. Visit type - Emergency Visit Emergency Visit: Yes ED Registration Date: 10/14/18 Care time: The patient presented to the Emergency Department on the above date and was hospitalized for further evaluation of their emergent condition. - New Patient This patient is new to me today: No - Critical Care Critical Care patient: No
[2018-10-17] MEDS ORDERED: INSULIN (NOVOLOG) ASPART 100 UNITS/ML 10ML VIAL ONE (21:16)
[2018-10-17] MEDS: ATORVASTATIN CA 10 MG TABLET (FP) PO SCH (21:26)
[2018-10-18] MEDS: INSULIN SLIDING SCALE (NOVOLOG) 1 VIAL SQ SCH ×4 (07:06→21:08)
[2018-10-18 09:33] LABS: HEMATOCRIT 25.8 % (32.4-45.2); HEMOGLOBIN 8.2 GM/dl (10.7-15.3); MCH 28.1 pg (25.7-33.7); MCHC 31.9 g/dl (32.0-36.0); MEAN CELL VOLUME 88.3 fl (80-96); MEAN PLT VOLUME 9.9 fl (7.5-11.1); PLATELET COUNT 216 K/MM3 (134-434); RBC 2.93 M/mm3 (3.60-5.2); RDW 14.2 % (11.6-15.6); WHITE BLOOD COUNT 5.4 K/mm3 (4.0-10.8)
[2018-10-18 09:34] LABS: BASO % 0.4 % (0-2.0); EOS % 1.6 % (0-4.5); LYMPH % 32.8 % (8-40); MONO % 6.8 % (3.8-10.2); NEUT % 58.4 % (42.8-82.8)
[2018-10-18] MEDS: hydrALAZINE HCL 25 MG TABLET (FP) PO SCH ×2 (09:44→21:07)
[2018-10-18] MEDS: CARVEDILOL 6.25 MG TABLET (FP) PO SCH ×2 (09:44→21:08)
[2018-10-18] MEDS: HEPARIN NA (PORCINE) 5,000 UNITS/ML 1ML VIAL SQ SCH ×2 (09:44→21:08)
[2018-10-18] MEDS: MINERAL OIL/PET HY-PHL TOPICAL OINTMENT 454 GM JAR TP SCH ×2 (09:44→21:08)
--- NOTE | 2018-10-18 10:30 | PN ---
Physical Exam: SUBJECTIVE: Patient seen and examined, oob in chair, c/o pain, OBJECTIVE: Vital Signs Period Temp Pulse Resp BP Sys/Ya Pulse Ox Last 24 Hr 98.2 F-99.2 F 66-79 16-18 144-158/49-54 96-98 GENERAL: The patient is awake, alert, and fully oriented, in no acute distress. HEAD: Normal with no signs of trauma. EYES: PERRL, extraocular movements intact, sclera anicteric, conjunctiva clear. No ptosis. ENT: Ears normal, nares patent, oropharynx clear without exudates, moist mucous membranes. NECK: Trachea midline, full range of motion, supple. LUNGS: Breath sounds equal, clear to auscultation bilaterally, no wheezes, no crackles, no accessory muscle use. HEART: Regular rate and rhythm, S1, S2 without murmur, rub or gallop. ABDOMEN: Soft, nontender, nondistended, normoactive bowel sounds, no guarding, no rebound, no hepatosplenomegaly, no masses. EXTREMITIES: 2+ pulses, warm, well-perfused, no edema. NEUROLOGICAL: Cranial nerves II through XII grossly intact. Normal speech, gait not observed. PSYCH: Normal mood, normal affect. SKIN: Warm, dry, normal turgor, no rashes or lesions noted Laboratory Results - last 24 hr 10/17/18 10/17/18 10/17/18 11:35 16:58 21:23 WBC RBC Hgb Hct MCV MCH MCHC RDW Plt Count MPV Absolute Neuts (auto) Neutrophils % Lymphocytes % Monocytes % Eosinophils % Basophils % POC Glucometer 267 125 127 10/18/18 10/18/18 07:03 08:00 WBC 5.4 RBC 2.93 L Hgb 8.2 L Hct 25.8 L MCV 88.3 MCH 28.1 MCHC 31.9 L RDW 14.2 Plt Count 216 MPV 9.9 Absolute Neuts (auto) 3.1 Neutrophils % 58.4 Lymphocytes % 32.8 Monocytes % 6.8 Eosinophils % 1.6 Basophils % 0.4 POC Glucometer 105 Active Medications Generic Name Dose Route Start Last Admin Trade Name Freq PRN Reason Stop Dose Admin Acetaminophen 650 mg 10/15/18 16:01 10/16/18 18:24 Tylenol - PO 650 mg Q6H PRN Administration PAIN LEVEL 1-5 Atorvastatin Calcium 10 mg 10/14/18 22:00 10/17/18 21:26 Lipitor - PO 10 mg HS PENELOPE Administration Carvedilol 6.25 mg 10/14/18 22:00 10/18/18 09:44 Coreg - PO 6.25 mg BID PENELOPE Administration Emollient Ointment 1 applic 10/15/18 22:00 10/18/18 09:44 Aquaphor - TP 1 applic BID PENELOPE Administration Heparin Sodium (Porcine) 5,000 unit 10/15/18 10:00 10/18/18 09:44 Heparin - SQ 5,000 unit BID PENELOPE Administration Hydralazine HCl 25 mg 10/14/18 22:00 10/18/18 09:44 Apresoline - PO 25 mg BID PENELOPE Administration Insulin Aspart 1 vial 10/15/18 07:00 10/18/18 07:06 Novolog Vial Sliding Scale - SQ Not Given ACHS [facility] Protocol ASSESSMENT/PLAN: 88 year-old woman with a PMH significant for diastolic heart failure, HF, anemia , CKD, and dementia. Admitted for pubic rami fractures s/p mechanical fall. Pubic rami fractures --nondisplaced fractures --seen and evaluated by ortho, no surgical intervention indicated --Tylenol PRN Diastolic heart failure Severe pulmonary hypertension --one month ago admitted for HF exacerbation; 09/10 echo: LV with preserved EF 60%; BLAE; moderate TR; severe pHTN; mild AI; trace PI --/ CXR shows improvement from one month ago but still with some fluid on right --holding lasix due to elevated Cr Hyperkalemia --15 gr Kayexelate ordered --repeat ordered K+ ordered for this afternoon Hypomagnesia --1 gr IV ordered CKD --BUN and Cr elevated above baseline --lasix on hold, no fluids due to CHF --repeat labs in am Parkinsonism features --seen and evaluated by neuro: clinically no evidence of Parkinson disease, no need for imaging FEN --PO intake adequate --Electrolytes: replete as indicated --Nutrition: low sodium, diabetic DVT prophylaxis: subq heparin Physical therapy Dispo: continues to require inpatient care. Full code. Visit type - Emergency Visit Emergency Visit: Yes ED Registration Date: 10/14/18 Care time: The patient presented to the Emergency Department on the above date and was hospitalized for further evaluation of their emergent condition. - New Patient This patient is new to me today: Yes Date on this admission: 10/18/18 - Critical Care Critical Care patient: No
[2018-10-18 10:50] LABS: ANION GAP 9 MMOL/L (8-16); BLOOD UREA NITROGEN 58 mg/dl (7-18); CHLORIDE 110 mmol/L (98-107); CO2 21 mmol/L (22-28); CREATININE 2.3 mg/dl (0.6-1.3); GLUCOSE,RANDOM 94 mg/dl (74-106); MAGNESIUM 1.7 mg/dL (1.8-2.4); POTASSIUM 5.4 mmol/L (3.5-5.1); SODIUM 140 mmol/L (136-145)
[2018-10-18 10:51] LABS: ALBUMIN 2.3 g/dl (3.5-5.0); ALK PHOS 96 U/L (32-92); BILIRUBIN,TOTAL 0.5 mg/dl (0.2-1.0); SGOT/AST 18 U/L (10-42); SGPT/ALT 13 U/L (10-40); TOT PROT 4.9 g/dl (6.4-8.3)
[2018-10-18] MEDS ORDERED: MAGNESIUM SULF 50% (8.12 MEQ/2 ML-1 GM VIAL) IVPB ONE (11:00)
[2018-10-18] MEDS ORDERED: SODIUM POLYSTYRENE SULFONATE 15 GM/60 ML BOTTLE PO ONE ×2 (11:00→23:31)
[2018-10-18] MEDS: ATORVASTATIN CA 10 MG TABLET (FP) PO SCH (21:07)
[2018-10-18] MEDS: ACETAMINOPHEN 325 MG TABLET (FP) PO PRN (21:08)
[2018-10-19] MEDS: INSULIN SLIDING SCALE (NOVOLOG) 1 VIAL SQ SCH ×2 (06:28→12:09)
[2018-10-19] MEDS: CARVEDILOL 6.25 MG TABLET (FP) PO SCH ×2 (06:28→10:02)
--- NOTE | 2018-10-19 07:37 | DS ---
Physical Exam: SUBJECTIVE: Patient seen and examined OBJECTIVE: Vital Signs Period Temp Pulse Resp BP Sys/Ya Pulse Ox Last 24 Hr 98.2 F-99.2 F 63-71 17-18 113-167/43-57 96-97 PHYSICAL EXAM GENERAL: The patient is awake, alert, and fully oriented, in no acute distress. LUNGS: Breath sounds CTA HEART: Regular rate and rhythm, S1, S2 ABDOMEN: Soft, nontender, nondistended, normoactive bowel sounds LOWER EXTREMITIES: 2+ pulses, warm, well-perfused; no edema, no calf tenderness ; dry skin improved NEUROLOGICAL: Cranial nerves II through XII grossly intact. Normal speech; gait not observed today LABS Laboratory Results - last 24 hr 10/18/18 10/18/18 10/18/18 08:00 08:00 11:41 WBC 5.4 RBC 2.93 L Hgb 8.2 L Hct 25.8 L MCV 88.3 MCH 28.1 MCHC 31.9 L RDW 14.2 Plt Count 216 MPV 9.9 Absolute Neuts (auto) 3.1 Neutrophils % 58.4 Lymphocytes % 32.8 Monocytes % 6.8 Eosinophils % 1.6 Basophils % 0.4 Sodium 140 Potassium 5.4 H Chloride 110 H Carbon Dioxide 21 L Anion Gap 9 BUN 58 H Creatinine 2.3 H Creat Clearance w eGFR 20.06 POC Glucometer 131 Random Glucose 94 Calcium 8.0 L Magnesium 1.7 L Total Bilirubin 0.5 AST 18 ALT 13 Alkaline Phosphatase 96 H Total Protein 4.9 L Albumin 2.3 L 10/18/18 10/18/18 10/18/18 14:30 16:32 19:40 WBC RBC Hgb Hct MCV MCH MCHC RDW Plt Count MPV Absolute Neuts (auto) Neutrophils % Lymphocytes % Monocytes % Eosinophils % Basophils % Sodium Potassium 5.3 H 5.2 H Chloride Carbon Dioxide Anion Gap BUN Creatinine Creat Clearance w eGFR POC Glucometer 128 Random Glucose Calcium Magnesium Total Bilirubin AST ALT Alkaline Phosphatase Total Protein Albumin 10/19/18 06:20 WBC RBC Hgb Hct MCV MCH MCHC RDW Plt Count MPV Absolute Neuts (auto) Neutrophils % Lymphocytes % Monocytes % Eosinophils % Basophils % Sodium Potassium Chloride Carbon Dioxide Anion Gap BUN Creatinine Creat Clearance w eGFR POC Glucometer 106 Random Glucose Calcium Magnesium Total Bilirubin AST ALT Alkaline Phosphatase Total Protein Albumin HOSPITAL COURSE: Date of Admission:10/14/18 Date of Discharge: 10/19/18 88 year-old woman with a PMH significant for diastolic heart failure, HF, anemia , CKD, and dementia. Admitted for pubic rami fractures s/p mechanical fall. Pubic rami fractures --nondisplaced fractures --seen and evaluated by ortho, no surgical intervention indicated --Tylenol PRN Diastolic heart failure Severe pulmonary hypertension --one month ago admitted for HF exacerbation; 09/10 echo: LV with preserved EF 60%; BLAE; moderate TR; severe pHTN; mild AI; trace PI --10/14 CXR shows improvement from one month ago but still with some fluid on right --holding lasix due to elevated Cr CKD --BUN and Cr elevated above baseline --hold PO lasix; no fluids due to CHF --repeat labs in am Parkinsonism features --granddaughter advises of onset of shuffling, forward leaning gait for several months; has also noted intermittent hand tremors worse than baseline over same period of time --seen and evaluated by neuro: clinically no evidence of Parkinson disease, no need for imaging FEN --PO intake adequate --Electrolytes: replete as indicated --Nutrition: low sodium, diabetic DVT prophylaxis: subq heparin Physical therapy Dispo: continues to require inpatient care. Full code. Minutes to complete discharge: 35 Discharge Summary Reason For Visit: CONTUSION RIGHT HIP/FX OF PUBIC RAMUS Current Active Problems Contusion, hip (Acute) Pubic ramus fracture (Acute) Condition: Improved - Instructions Diet, Activity, Other Instructions: It is recommended you take Tylenol for pain. Avoid motrin, ibuprofen, Alleve, naprosyn, and any product containing aspirin. It is important you follow up with Dr. Perea, the orthopedist who saw you in the hospital, in two weeks. Return to the emergency department for any new or worsening symptoms. Referrals: Irving Perea DO [Staff Physician] - 2 Weeks - Home Medications Comprehensive Discharge Medication List: Ambulatory Orders Atorvastatin Ca [Lipitor] 10 mg PO HS 09/09/18 Hydralazine HCl 25 mg PO BID 09/09/18 Carvedilol [Coreg -] 6.25 mg PO BID #60 tablet 09/11/18 Furosemide [Lasix -] 40 mg PO DAILY #30 tablet 09/11/18 This patient is new to me today: No Emergency Visit: Yes ED Registration Date: 10/14/18 Care time: The patient presented to the Emergency Department on the above date and was hospitalized for further evaluation of their emergent condition. Critical Care patient: No - Discharge Referral Referred to [facility] Med P.C.: No
[2018-10-19 08:02] LABS: HEMATOCRIT 26.8 % (32.4-45.2); HEMOGLOBIN 8.6 GM/dl (10.7-15.3); MCH 28.2 pg (25.7-33.7); MEAN CELL VOLUME 88.1 fl (80-96); MEAN PLT VOLUME 9.5 fl (7.5-11.1); PLATELET COUNT 232 K/MM3 (134-434); RBC 3.05 M/mm3 (3.60-5.2); RDW 14.4 % (11.6-15.6); WHITE BLOOD COUNT 5.9 K/mm3 (4.0-10.8)
[2018-10-19 08:48] LABS: ALBUMIN 2.4 g/dl (3.5-5.0); ALK PHOS 102 U/L (32-92); ANION GAP 8 MMOL/L (8-16); BILIRUBIN,TOTAL 0.4 mg/dl (0.2-1.0); BLOOD UREA NITROGEN 55 mg/dl (7-18); CHLORIDE 108 mmol/L (98-107); CO2 21 mmol/L (22-28); CREATININE 2.1 mg/dl (0.6-1.3); GLUCOSE,RANDOM 97 mg/dl (74-106); MAGNESIUM 1.9 mg/dL (1.8-2.4); SGOT/AST 26 U/L (10-42); SGPT/ALT 19 U/L (10-40); SODIUM 137 mmol/L (136-145)
[2018-10-19] MEDS ORDERED: FUROSEMIDE 40 MG TABLET (FP) PO SCH (10:00)
[2018-10-19] MEDS: hydrALAZINE HCL 25 MG TABLET (FP) PO SCH (10:02)
[2018-10-19] MEDS: HEPARIN NA (PORCINE) 5,000 UNITS/ML 1ML VIAL SQ SCH (10:02)
[2018-10-19] MEDS: MINERAL OIL/PET HY-PHL TOPICAL OINTMENT 454 GM JAR TP SCH (10:02)
[2018-10-19 14:05] VITALS: BP 142/47; PULSE 71; TEMP 98.9
== END 2018-10-19 15:20 ==
LOC: FER 15:42 → FM/S 20:28
PROVIDERS: ADMIT Internal Medicine; ATTEND Nurse Practitioner Acute Care
PROC: 3E033GC Introduction of Other Therapeutic Substance into Peripheral Vein, Percutaneous Approach (ICD-10-PCS; principal; 2018-10-14)
PROC: 3E023GC Introduction of Other Therapeutic Substance into Muscle, Percutaneous Approach (ICD-10-PCS; 2018-10-14)
DX: S32.591A Other specified fracture of right pubis, initial encounter for closed fracture (principal); W01.0XXA Fall on same level from slipping, tripping and stumbling without subsequent striking against object, initial encounter; Y93.89 Activity, other specified; Y92.018 Other place in single-family (private) house as the place of occurrence of the external cause; Y99.8 Other external cause status; I25.10 Atherosclerotic heart disease of native coronary artery without angina pectoris; I13.0 Hypertensive heart and chronic kidney disease with heart failure and stage 1 through stage 4 chronic kidney disease, or unspecified chronic kidney disease; I50.9 Heart failure, unspecified; N18.9 Chronic kidney disease, unspecified; I27.20 Pulmonary hypertension, unspecified; D64.9 Anemia, unspecified; E87.5 Hyperkalemia; G20 Parkinson's disease; F02.80 Dementia in other diseases classified elsewhere, unspecified severity, without behavioral disturbance, psychotic disturbance, mood disturbance, and anxiety
CPT/HCPCS: 36415; 71045-TC-FY; 72192-TC; 73523-TC-FY; 80048; 80053; 80076; 82550; 82553; 82962; 83036; 83735; 84132; 84484; 85025; 85027; 93005; 96372; 96374; 97116-GP; 97162-GP; 99282-25; G0378; J1644